=== PATIENT | female | born 1975 | race Caucasian/White ===

== ENCOUNTER 2017-06-21 18:50 | Emergency (ER) | payer MEDICAID, SELFPAY ==
[2017-06-21 18:50] VITALS: BP 149/98; PULSE 92; RESP 16; TEMP 37.1; O2SAT 100; BMI 31.4
--- NOTE | 2017-06-21 20:52 | ED.DCSUM_ITS ---
- ER Visit Summary Date of Service: 06/21/17 Chief Complaint: URI symptoms and left lower molar dental pain. History of Present Illness: The patient is a 42 F days. Denies any fever. Nonproductive cough. Mild earache mild sore throat. No vomiting no diarrhea. Also states her last left lower molar is been painful last several days also. He had dental work done at tooth before. She has had multiple teeth pulled in the past. Physical Examination: Well appearing female no acute distress. Vital signs are stable afebrile. She does not look septic or toxic. Pulse ox are percent on room air no signs of hypoxia. HEENT exam posterior pharynx mild erythema no exudate. No trouble swallowing or breathing. No stridor or drooling. TMs are minimally erythematous bilaterally. Nails are unremarkable. Left lower last molar as cavity and tender to palpation however there is no inflammation of the gum. Neck nontender no lymphadenopathy. Lungs clear to auscultation bilaterally. Heart regular rate and rhythm no murmur. Abdomen soft nontender. Moving all 4 extremities. Neurologic exam normal. Test Results: None Emergency Department Course and Treatment: Patient will be locally anesthetized with a dental block with Marcaine. Discharged home with Motrin for pain and a [place] home pack. She will not be written for a prescription for any narcotic. Follow-up with her dentist. Treatment Plan: [] Disposition: Discharge Impression: Viral URI Tobacco abuse Left lower molar dental pain secondary to dental cavity with a dental block performed by the ER. This note was generated with [employer] dictation software. It may contain incorrect words, spelling, and punctuation that were not noted in review of the chart prior to signing ED Disposition - Plan for ED Patient: Chief Complaint: General Illness Referrals: Kevin Conn MD [Primary Care Provider] -
--- NOTE | 2017-06-21 20:52 | ED.DEP ---
ED Disposition - Plan for ED Patient: Disposition: Home or Assisted Living Chief Complaint: General Illness Instructions: ED URI Viral, ED Tooth Pain Prescriptions: Penicillin Vk [Pen-Vee K 250MG] 250 mg PO 4X/DAY #40 tab Referrals: Kevin Conn MD [Primary Care Provider] - As Needed Shasta Garcia [NON-STAFF] - Additional Instructions: Follow-up with an oral surgeon as soon as possible. Limited [place] for pain. Otherwise ice to jaw and Motrin and Tylenol. Stop smoking !!
--- NOTE | 2017-06-21 20:59 | DCINST.ED_ITS ---
ED Disposition - Plan for ED Patient: Disposition: Home or Assisted Living Chief Complaint: General Illness Instructions: ED URI Viral, ED Tooth Pain Prescriptions: Penicillin Vk [Pen-Vee K 250MG] 250 mg PO 4X/DAY #40 tab Referrals: Kevin Conn MD [Primary Care Provider] - As Needed Shasta Garcia [NON-STAFF] - Additional Instructions: Follow-up with an oral surgeon as soon as possible. Limited [place] for pain. Otherwise ice to jaw and Motrin and Tylenol. Stop smoking !!
[2017-06-21 21:01] VITALS: RESP 18
[2017-06-21] MEDS: HYDROcodone Bitartrate/Apap 5/325 Tablet PO (21:01)
== END 2017-06-21 21:02 | disposition home or self-care (01) ==
PROVIDERS: Emergency Provider Emergency Medicine; Family Provider Family Medicine; PCP Family Medicine
DX: K02.9 Dental caries, unspecified (principal); J06.9 Acute upper respiratory infection, unspecified; K08.89 Other specified disorders of teeth and supporting structures; E11.9 Type 2 diabetes mellitus without complications; E78.00 Pure hypercholesterolemia, unspecified; F32.9 Major depressive disorder, single episode, unspecified; Z72.0 Tobacco use; Z79.84 Long term (current) use of oral hypoglycemic drugs; Z79.899 Other long term (current) drug therapy
CPT/HCPCS: 64402; 99283

== ENCOUNTER 2018-04-15 20:12 | Observation (INO) | payer MEDICAID, SELFPAY ==
[2018-04-15 20:13] VITALS: BP 130/86; PULSE 84; RESP 16; TEMP 36.2; O2SAT 99; BMI 33.2
--- NOTE | 2018-04-15 20:15 | ED.RN ---
NO OLD EKGS IN MUSE
--- NOTE | 2018-04-15 20:33 | EKG12_ITS ---
Test Reason : REPEAT Blood Pressure : / mmHG Vent. Rate : 081 BPM Atrial Rate : 081 BPM P-R Int : 140 ms QRS Dur : 090 ms QT Int : 396 ms P-R-T Axes : 030 012 095 degrees QTc Int : 460 ms Normal sinus rhythm Low voltage QRS Nonspecific ST and T wave abnormality Abnormal ECG Confirmed by NEMO CHASE, ADORE ([id number]), editor in chief newspaper ZO WONG ([id number]) on 04/17/2018 2:00:49 PM Referred By: LUISA Confirmed By:ADORE CHESTER MD
--- NOTE | 2018-04-15 20:33 | RAD_ITS ---
STUDY: X-RAY CHEST REASON FOR EXAM: Female, 42 years old. Chest pain TECHNIQUE: AP portable COMPARISON: None. FINDINGS: The lungs are clear and expanded. There is no demonstrated pleural abnormality. Normal size heart. Normal mediastinum and irvin. Normal visualized pulmonary arteries. Normal visualized aortic arch and descending thoracic aorta. Normal visualized thoracic spine. Normal visualized ribs, clavicles, and shoulders. There is no demonstrated abnormality of the visualized soft tissue structures of the upper abdomen. RAD/Chest 1 View (Portable) IMPRESSION: Normal x-ray examination of the chest. Electronically Signed: Jose David King MD at 22:01 EST , Service support ,
--- NOTE | 2018-04-15 20:35 | ED.DCSUM_ITS ---
- ER Visit Summary Date of Service: 04/15/18 Chief Complaint: Chest pain History of Present Illness: The patient is a 42 F presenting with chest pain. She states the pain has been intermittent for the last 2-3 days. She is getting the pain 2-3 times a day. She states it is worsened with exertion. She has associated shortness of breath, diaphoresis. She denies nausea or vomiting. She states the pain is midsternal radiates to her jaw and left arm. She has history of diabetes, hypercholesterolemia, family history of early heart disease and is a previous smoker. She denies PE/DVT risk factors. Physical Examination: Vitals are stable. Patient is afebrile. Alert no acute distress. HEENT exam is unremarkable. Neck is supple. Lungs are clear and equal bilaterally. Heart is regular rate and rhythm. Abdomen is soft nontender nondistended. Extremities are unremarkable. Skin is warm and dry. No focal neurologic deficit. Remainder of exam is unremarkable. Emergency Department Course and Treatment: EKG is sinus rhythm rate of 84, T wave inversion 1 and aVL with no old for comparison. Chest x-ray shows no acute process. CBC, chemistries unremarkable other than glucose 187. Troponin is negative. She was given aspirin on arrival. She remained pain-free in the emergency department. Discussed with the hospitalist for observation. Disposition: Observation Impression: Chest pain This note was generated with [employer] dictation software. It may contain incorrect words, spelling, and punctuation that were not noted in review of the chart prior to signing ED Disposition - Plan for ED Patient: Disposition: Acute Care Hospital [facility] Chief Complaint: Chest Pain
[2018-04-15] MEDS: Aspirin 81 MG TAB.CHEW 324 MG PO (20:57)
--- NOTE | 2018-04-15 20:57 | EKG12_ITS ---
Test Reason : CP Blood Pressure : / mmHG Vent. Rate : 084 BPM Atrial Rate : 084 BPM P-R Int : 142 ms QRS Dur : 088 ms QT Int : 390 ms P-R-T Axes : 032 015 093 degrees QTc Int : 460 ms Normal sinus rhythm Nonspecific ST and T wave abnormality Abnormal ECG Confirmed by NEMO CHASE, ADORE ([id number]), book editor ZO WONG ([id number]) on 04/17/2018 2:01:06 PM Referred By: JAZMIN Confirmed By:ADORE CHESTER MD
[2018-04-15 21:57] LABS: Absolute Lymphocyte Count 3.31 X10^3/ul (0.83-4.51); Absolute Neutrophil Count 5.7 X10^3/uL (2.0-7.7); Basophil# 0.04 X10^3/uL; Basophil% 0.4 % (0-1); Eosinophil# 0.15 X10^3/uL; Eosinophils% 1.5 % (0-5); Hematocrit 41.1 % (37-47); Hemoglobin 13.5 g/dl (12.0-15.0); Lymphocyte # 3.31 X10^3/ul (4.0); Lymphocyte % 33.1 % (19-41); Mean Corp Hgb Conc 32.8 g/gl (32-36); Mean Corpuscular Hgb 28.2 pg (27.0-32.0); Mean Platelet Vol. 9.7 fl (6.2-12.0); Monocyte# 0.77 X10^3/uL; Monocyte% 7.7 % (0-10); Neutrophil # 5.72 X10^3/uL (2.7-7.7); Neutrophil % 57.2 % (47-70); POSITIVE COUNT NO; POSITIVE DIFFERENTIAL NO; POSITIVE MORPHOLOGY NO; Platelet Count 390 K/mm3 (150-450); RBC Distribution Width CV 13.8 % (11.6-14.6); RBC Distribution Width SD 42.7 fl (35.1-43.9); Red Blood Count 4.78 M/mm3 (4.2-5.4)
[2018-04-15 22:15] LABS: Anion Gap 10 (5-15); BUN 15 mg/dL (7-18); BUN/Creat Ratio 14.9 RATIO (10-20); Chloride 103 mmol/L (98-107); Creatinine, Serum 1.01 mg/dL (0.55-1.02); EST Glomerular Filtration Rate 64 mL/min (>60); Est Glom Filt Rate - Afr Amer 77 mL/min (>60); Estimated Creatinine Clearance 76.61 ml/min; Glucose 187 mg/dL (74-106); Potassium 4.4 mmol/L (3.5-5.1); Sodium Level 139 mmol/L (136-145)
--- NOTE | 2018-04-15 23:09 | HP.PCM_ITS ---
Problem List (1) Chest pain Status: Acute History of Present Illness Date of Admission: 04/15/18 Chief Complaint: chest Pain The patient is a 42 year old F with a significant diabetes mellitus; depression; hyperlipidemia; former smoker who presented with 2-3 days history of intermittent substernal chest pain that radiated to her bilateral jaw and left arm. She described her chest pain at sharp and tingling. Her chest pain is of severity 6-7 on a scale of 1-10. Associated with her symptoms is a warm feeling on the face and neck. She denies any nausea or vomiting. Chest pain has been progressively worsening. She denies any ameliorating factors. Her chest pain worsens with normal activity. Past Medical History Allergies naproxen Adverse Reaction (Verified 04/15/18 20:16) Other Home Medications: Ambulatory Orders Medication Instructions Recorded Metformin HCl [Metformin HCl ER] 1,000 mg PO BID 02/26/17 Simvastatin [Zocor] 40 mg PO QHS 02/26/17 buPROPion XL [Wellbutrin Xl] 150 mg PO BID 02/26/17 Glimepiride 2 mg PO DAILY 04/15/18 Naproxen 500 mg PO PRN PRN 04/15/18 Sertraline HCl 50 mg PO DAILY 04/15/18 Surgical History: - - All his teeth has been pulled out. Smoking Status: Current every day smoker Review of Systems Constitutional: Denies: Chills, Fever, Weight Change HEENT: Denies: Head Aches, Sinus Congestion, Sinus Drainage Cardiovascular: Reports: Chest Pain. Denies: Palpitations Respiratory: Reports: Shortness of Breath. Denies: Cough Gastrointestinal: Denies: Abdominal Pain, Nausea, Vomiting Genitourinary: Denies: Dysuria Musculoskeletal: Reports: Arm Pain - Left arm. Denies: Joint Pain, Joint Tenderness Skin: Denies: Rash, Wounds Neurological: Denies: Numbness, Tingling, Focal weakness Psychiatric: Denies: Anxiety, Depression, Homicidal Ideations, Suicidal Ideations Hematologic/ Lymphatic: Denies: Easy Bruising, Easy Bleeding VTE Information - Inpt Only VTE Present on Admission: No VTE Mechan Device Prophylaxis: None VTE Pharm Prophylaxis ordered?: Yes Patient Problems: Active and Suspected Problems Chest pain (Acute) - Physical Exam General: Alert, Oriented x3, Cooperative HEENT: Atraumatic, PERRLA, EOMI, Normocephalic Neck: Supple, No JVD, Negative Carotid Bruits Lungs: Clear to auscultation, Normal air movement Cardiovascular: Regular rate, No murmurs Abdomen: Bowel Sounds Present, Soft, Non Tender Extremities: No edema, Capillary Refill Less than 3 Seconds Skin: No rashes, No breakdown Musculoskeletal: No Tenderness to Palpation of Joints or Extremities Neurological: Cranial nerves II-XII grossly intact Psych/Mental Status: Normal Affect, Appropriate Vital Signs Temp Pulse Resp BP Pulse Ox 97.2 F L 84 16 130/86 H 99 04/15/18 20:13 04/15/18 20:13 04/15/18 20:13 04/15/18 20:13 04/15/18 20:13 Oxygen Delivery Method Room Air Weight: 102.058 kg Body Mass Index (BMI) 33.2 Laboratory Tests Past 24 Hrs 04/15/18 04/15/18 21:45 21:45 WBC 10.0 RBC 4.78 Hgb 13.5 Hct 41.1 MCV 86.0 MCH 28.2 MCHC 32.8 RDW 13.8 RDW Differential 42.7 Plt Count 390 MPV 9.7 Immature Gran % (Auto) 0.100 Neut % (Auto) 57.2 Lymph % (Auto) 33.1 [place] % (Auto) 7.7 Eos % (Auto) 1.5 Baso % (Auto) 0.4 Absolute Neuts (auto) 5.7 Absolute Lymphs (auto) 3.31 Total Counted Not Reportable Sodium 139 Potassium 4.4 Chloride 103 Carbon Dioxide 26.0 Anion Gap 10 BUN 15 Creatinine 1.01 Estim Creat Clear Calc 76.61 Est GFR (MDRD) Af Amer 77 Est GFR (MDRD) Non-Af 64 BUN/Creatinine Ratio 14.9 Glucose 187 H Calcium 9.0 Troponin I < 0.015 Assessment/Plan All Active Problems Chest pain (Acute) The patient is a 42 year old F with a significant diabetes mellitus; depression; hyperlipidemia; former smoker who presented with 2-3 days history of intermittent substernal chest pain that radiated to her bilateral jaw and left arm. Chest pain Admit to a monitored bed on PCU CXR independently reviewed confirms acute cardia primary process. EKG independently reviewed confirms sinus rhythm with T wave inversion in leads I and aVL with no old EKG to compare with. Patient received aspirin 324 mg at emergency department. ASA 81 mg p.o. daily SL NTG 0.4 mg prn as needed for chest pain Morphine as needed for pain Serial cardiac enzymes High intensity statin ordered. Lipid levels ordered. Stat EKG as needed for chest pain Treadmill stress test in the AM if the cardiac enzymes are negative Depression Wellbutrin continued. Diabetes mellitus On presentation her blood glucose was not within goal. Hold home metformin since she is going for stress test return to the outcome of the stress test. Amaryl continued We will put patient on correction scale insulin. Hypoglycemic protocol ordered. DVT prophylaxis Subcutaneous heparin ordered. Ordered. Code Visit OBSV E&M: 48692 Initial observation care L3
[2018-04-15 23:30] VITALS: BP 125/78; PULSE 83; RESP 22; O2SAT 98
[2018-04-16] VITALS (34 sets, daily range): BP systolic 90–170; BP diastolic 61–96; PULSE 66–95; RESP 12–18; TEMP 36.5–36.8; O2SAT 95–100; BMI 34.0
[2018-04-16 00:51] LABS: Bedside Glucose 166 mg/dL (70-110)
[2018-04-16 03:50] LABS: Cholesterol 185 mg/dL (200); High Density Lipoprotein 41 mg/dL; Triglycerides 283 mg/dL; Very Low Density Lipoprotein 57 mg/dL (5-40)
[2018-04-16 04:11] LABS: Anion Gap 12 (5-15); BUN 17 mg/dL (7-18); BUN/Creat Ratio 18.5 RATIO (10-20); Calcium,Total 8.7 mg/dL (8.5-10.1); Chloride 107 mmol/L (98-107); Creatinine, Serum 0.92 mg/dL (0.55-1.02); EST Glomerular Filtration Rate 71 mL/min (>60); Est Glom Filt Rate - Afr Amer 86 mL/min (>60); Glucose 134 mg/dL (74-106); Potassium 3.9 mmol/L (3.5-5.1); Sodium Level 141 mmol/L (136-145)
[2018-04-16 04:27] LABS: Hemoglobin 12.5 g/dl (12.0-15.0); Mean Corp Hgb Conc 32.9 g/gl (32-36); Mean Corpuscular Hgb 28.3 pg (27.0-32.0); Mean Corpuscular Volume 86.2 fL (81-99); Mean Platelet Vol. 10.3 fl (6.2-12.0); Platelet Count 375 K/mm3 (150-450); Red Blood Count 4.41 M/mm3 (4.2-5.4); Scan Indicated on CBC? Y/N NO; White Blood Count 10.2 K/mm3 (4.4-11.0)
--- NOTE | 2018-04-16 05:00 | EKG12_ITS ---
Test Reason : AM EKG Blood Pressure : / mmHG Vent. Rate : 080 BPM Atrial Rate : 080 BPM P-R Int : 136 ms QRS Dur : 094 ms QT Int : 404 ms P-R-T Axes : 043 044 102 degrees QTc Int : 465 ms Normal sinus rhythm T wave abnormality: consider myocardial ischemia-lateral Confirmed by NEMO CHASE, ADORE ([id number]), photo editor ZO WONG ([id number]) on 04/18/2018 2:43:56 PM Referred By: SHANNAN Confirmed By:ADORE CHESTER MD
[2018-04-16] MEDS: Aspirin E.C. 81 MG Tablet PO (05:56)
[2018-04-16] MEDS: 0.9% NaCl Peripheral Flush Adult/Peds IV (05:57)
[2018-04-16 06:05] LABS: Bedside Glucose 128 mg/dL (70-110)
[2018-04-16 08:48] LABS: Prothrombin Time (Protime)PT. 13.4 SECONDS (11.7-14.9)
[2018-04-16 08:55] LABS: Partial Thromboplast Time 27.3 Seconds (24.1-36.2)
--- NOTE | 2018-04-16 09:57 | STRESSREP ---
Stress Test Report Date: 04/16/2018 Procedure: Exercise tolerance test/imaging study Indications: Chest pain Consent: Per the patient Procedure: The patient exercised on a Serge protocol for 6 minutes completing Stage II achieving a peak heart rate of 153 bpm (85 % predicted maximal heart rate) with a peak blood pressure 194/82 mmHg and a peak MET capacity of 7 METs. The baseline ECG demonstrated normal sinus rhythm. The peak exercise ECG demonstrated approximately 0.5-1.0 mm of horizontal/upsloping ST segment depression in leads II, III, aVF and in recovery and ECG demonstrating approximately [address] segment depression in leads II, III, aVF, and approximately 0.5-1.[address] segment depression in leads V5 through V6 with gradual resolution towards baseline in recovery. There were no cardiac dysrhythmias pretest, during exercise, or recovery. The functional capacity was considered average. There was chest discomfort and jaw discomfort at peak exercise with spontaneous resolution towards baseline in recovery. The examination was discontinued secondary to chest discomfort. Impression: 1. Technically adequate (percent predicted maximal heart rate greater than 85%) exercise tolerance test 2. Peak exercise ECG M and straight at approximately 0.5-1.0 mm of horizontal/upsloping ST segment depression in leads II, III, aVF, and in recovery and ECG demonstrating approximately [address] segment depression in leads II, III, aVF, and approximately 0.5-1.[address] segment depression in leads V5 through V6 with gradual resolution towards baseline in recovery 3. There were no cardiac dysrhythmias pretest, during exercise, or recovery 4. Nuclear images pending Myocardial perfusion imaging study: Technique: The patient was injected with 14.5 mCi of technetium 99m Cardiolite and subsequently rest SPECT Cardiolite nuclear imaging was obtained in the horizontal long, vertical long, and short axis views. The patient exercised on a Serge protocol for 6 minutes completing Stage 2 achieving a peak heart rate of 153 bpm (85 % predicted maximal heart rate) with a peak blood pressure 194/82 mmHg and a peak MET capacity of 7 METs. The patient was injected with 44.8 mCi of technetium 99m Cardiolite and subsequently stress SPECT Cardiolite nuclear imaging was obtained in the horizontal long, vertical long, and short axis views. A gated Cardiolite study at peak stress was obtained. Interpretation: Rest and stress SPECT Cardiolite nuclear imaging status post realignment, normalization, and attenuation correction, demonstrates at rest the appearance of relative uniform tracer uptake. Status post stress there is notation of diminished tracer uptake in portions of the mid to distal anterolateral, mid to distal anteroseptal, anterior apical, and septal apical segments. There is diminished end-systolic thickening and brightening in the aforementioned areas. The gated Cardiolite study demonstrates diminished myocardial thickening and end were wall motion in the aforementioned areas. The reported LVEF is 54 %. Impression: 1. Rest and stress SPECT Cardiolite nuclear imaging demonstrate this post stress myocardial perfusion changes appearing compatible with an area of stress-induced myocardial ischemia in portions of the mid to distal anterolateral, anteroseptal, anterior apical, and septal apical segments. 2. The gated Cardiolite study reports an LVEF of 54 %. This note was generated with [employer] software. It may contain incorrect words, spelling, and punctuation that were not noted in checking the note before signing.
--- NOTE | 2018-04-16 10:04 | STRESSREP_ITS ---
Stress Test Report Date: 04/16/2018 Procedure: Exercise tolerance test/imaging study Indications: Chest pain Consent: Per the patient Procedure: The patient exercised on a Serge protocol for 6 minutes completing Stage II achieving a peak heart rate of 153 bpm (85 % predicted maximal heart rate) with a peak blood pressure 194/82 mmHg and a peak MET capacity of 7 METs. The baseline ECG demonstrated normal sinus rhythm. The peak exercise ECG demonstrated approximately 0.5-1.0 mm of horizontal/upsloping ST segment depression in leads II, III, aVF and in recovery and ECG demonstrating approximately [address] segment depression in leads II, III, aVF, and approximately 0.5-1.[address] segment depression in leads V5 through V6 with gradual resolution towards baseline in recovery. There were no cardiac dysrhythmias pretest, during exercise, or recovery. The functional capacity was considered average. There was chest discomfort and jaw discomfort at peak exercise with spontaneous resolution towards baseline in recovery. The examination was discontinued secondary to chest discomfort. Impression: 1. Technically adequate (percent predicted maximal heart rate greater than 85%) exercise tolerance test 2. Peak exercise ECG M and straight at approximately 0.5-1.0 mm of horizontal/upsloping ST segment depression in leads II, III, aVF, and in recovery and ECG demonstrating approximately [address] segment depression in leads II, III, aVF, and approximately 0.5-1.[address] segment depression in leads V5 through V6 with gradual resolution towards baseline in recovery 3. There were no cardiac dysrhythmias pretest, during exercise, or recovery 4. Nuclear images pending Myocardial perfusion imaging study: Technique: The patient was injected with 14.5 mCi of technetium 99m Cardiolite and subsequently rest SPECT Cardiolite nuclear imaging was obtained in the horizontal long, vertical long, and short axis views. The patient exercised on a Serge protocol for 6 minutes completing Stage 2 achieving a peak heart rate of 153 bpm (85 % predicted maximal heart rate) with a peak blood pressure 194/82 mmHg and a peak MET capacity of 7 METs. The patient was injected with 44.8 mCi of technetium 99m Cardiolite and subsequently stress SPECT Cardiolite nuclear imaging was obtained in the horizontal long, vertical long, and short axis views. A gated Cardiolite study at peak stress was obtained. Interpretation: Rest and stress SPECT Cardiolite nuclear imaging status post realignment, nor malization, and attenuation correction, demonstrates at rest the appearance of relative uniform tracer uptake. Status post stress there is notation of diminished tracer uptake in portions of the mid to distal anterolateral, mid to distal anteroseptal, anterior apical, and septal apical segments. There is diminished end-systolic thickening and brightening in the aforementioned areas. The gated Cardiolite study demonstrates diminished myocardial thickening and end were wall motion in the aforementioned areas. The reported LVEF is 54 %. Impression: 1. Rest and stress SPECT Cardiolite nuclear imaging demonstrate this post stress myocardial perfusion changes appearing compatible with an area of stress- induced myocardial ischemia in portions of the mid to distal anterolateral, anteroseptal, anterior apical, and septal apical segments. 2. The gated Cardiolite study reports an LVEF of 54 %. This note was generated with [employer] software. It may contain incorrect words, spelling, and punctuation that were not noted in checking the note before signing.
--- NOTE | 2018-04-16 10:55 | CASEMGMT ---
According to the [facility] website, the following are in-network tertiary facilities: [facility], [place], [facility], [facility], [facility], [facility], [employer], and . [facility]
--- NOTE | 2018-04-16 11:10 | PN_ITS ---
Addendum entered and electronically signed by QUINCY Ansari 04/16/18 14:07: Code Visit S: Pt was seen and exmained post stress test prior to heart cath. She had no further complaints of chest pain. She also had no shortness of breath, pressure, heaviness, palpitations, racing, lightheadedness or dizziness, no nausea or vomiting. Prior, She had chest pain over the left midsternal region radiating into her left shoulder and neck. Explain the abnormal findings of her stress test she was agreeable to heart catheterization. O: VSS, heart cath reviewed-abnormal, CBC and BMP are unremarkable, INR is normal. General: Resting comfortably NAD Psych: A/Ox3 normal affect HEENT: PEARRLA AT NC Neck: Supple NT CV: RRR no m/t/r/g/h Resp: CTA Abd: [id number] Soft NT no guarding or rigidity Ext: DP2+= no edema Skin: W/D normal turgor Lymph/Heme: No active bleeding or adenopathy Neuro: CN2-12 intact A/P: 1. Chest pain with abnormal stress test-discussed with Dr. Goins patient was taken for heart catheterization. Continue aspirin, statin, metoprolol, Brilinta. 2. Depression-continue Wellbutrin 3. Type 2 diabetes mellitus-continue Amaryl, metformin held, A1c was 8.2 demonstrating poor control. She will likely need an additional agent at discharge, and will need to resume metformin after 3 days as she received dye. DVT prophylaxis: SCDs This patient was seen by Francis Thurman PA-C under the supervision of Doctor Gadiel. Original Note: Patient Problems: Active and Suspected Problems Chest pain (Acute) Subjective: Patient was seen independently and in conjunction with Francis MATHEW. Pt is a 42 YO female who presented to the emergency department at [facility] on 04/14/2018 complaining of left chest pain with radiation to both sides of her neck and down her left arm. It was associated with diaphoresis and shortness of breath. She has been having this pain for the past couple weeks. It generally last up to 5 minutes. She states it comes on at rest and with exertion. Past medical history is positive for diabetes mellitus type 2, hyperlipidemia, depression and tobacco dependence. She tells me she just quit smoking this past July and prior to that smoked for 20 years. There is a strong family history of coronary artery disease and her mother had an NH at 35 while giving to this patient. Troponin was less than 0.015 x 3. Nuclear stress test today was abnormal and the patient will be going for cardiac catheterization. PHYSICAL EXAM: GENERAL: alert, oriented X 3, Cooperative, NAD ORAL: moist mucosa, no mucosal lesions NECK: No JVD, supple, trachea midline, carotids have brisk upstroke and good pulse volume, no carotid bruits LUNGS: CTA, symmetric chest expansion, good air exchange throughout HEART: RRR, Normal S1 and S2, no rub, no gallop, no murmur ABDOMEN: soft, NT, ND, BS present, no guarding with palpation EXTREMITIES: no edema, no cyanosis, no calf tenderness, peripheral pulses are normal SKIN: No rashes, no breakdown NEUROLOGIC: no focal neurologic deficits PSYCH: appropriate, normal affect, pleasant - Physical Exam Vital Signs Temp Pulse Resp BP Pulse Ox 98.3 F 79 16 113/73 95 04/16/18 09:05 04/16/18 09:05 04/16/18 09:05 04/16/18 09:05 04/16/18 09:05 Oxygen Delivery Method Room Air Weight: 230 lb 2.601 oz Body Mass Index (BMI) 34.0 Intake and Output for Last 24 Hours 04/14/18 04/15/18 04/16/18 23:59 23:59 23:59 Intake Total Balance Laboratory Tests Past 24 Hrs 04/15/18 04/15/18 04/16/18 21:45 21:45 01:00 WBC 10.0 RBC 4.78 Hgb 13.5 Hct 41.1 MCV 86.0 MCH 28.2 MCHC 32.8 RDW 13.8 RDW Differential 42.7 Plt Count 390 MPV 9.7 Immature Gran % (Auto) 0.100 Neut % (Auto) 57.2 Lymph % (Auto) 33.1 Slope % (Auto) 7.7 Eos % (Auto) 1.5 Baso % (Auto) 0.4 Absolute Neuts (auto) 5.7 Absolute Lymphs (auto) 3.31 Total Counted Not Reportable PT INR APTT Sodium 139 Potassium 4.4 Chloride 103 Carbon Dioxide 26.0 Anion Gap 10 BUN 15 Creatinine 1.01 Estim Creat Clear Calc 76.61 Est GFR (MDRD) Af Amer 77 Est GFR (MDRD) Non-Af 64 BUN/Creatinine Ratio 14.9 Glucose 187 H Calcium 9.0 Troponin I < 0.015 < 0.015 Triglycerides Cholesterol LDL Cholesterol VLDL Cholesterol HDL Cholesterol 04/16/18 04/16/18 04/16/18 03:28 03:28 03:28 WBC 10.2 RBC 4.41 Hgb 12.5 Hct 38.0 MCV 86.2 MCH 28.3 MCHC 32.9 RDW 14.0 RDW Differential 43.0 Plt Count 375 MPV 10.3 Immature Gran % (Auto) Neut % (Auto) Lymph % (Auto) Slope % (Auto) Eos % (Auto) Baso % (Auto) Absolute Neuts (auto) Absolute Lymphs (auto) Total Counted PT INR APTT Sodium 141 Potassium 3.9 Chloride 107 Carbon Dioxide 22.0 Anion Gap 12 BUN 17 Creatinine 0.92 Estim Creat Clear Calc 84.10 Est GFR (MDRD) Af Amer 86 Est GFR (MDRD) Non-Af 71 BUN/Creatinine Ratio 18.5 Glucose 134 H Calcium 8.7 Troponin I < 0.015 Triglycerides 283 H Cholesterol 185 LDL Cholesterol 87 VLDL Cholesterol 57 H HDL Cholesterol 41 04/16/18 08:22 WBC RBC Hgb Hct MCV MCH MCHC RDW RDW Differential Plt Count MPV Immature Gran % (Auto) Neut % (Auto) Lymph % (Auto) Slope % (Auto) Eos % (Auto) Baso % (Auto) Absolute Neuts (auto) Absolute Lymphs (auto) Total Counted PT 13.4 INR 1.0 APTT 27.3 Sodium Potassium Chloride Carbon Dioxide Anion Gap BUN Creatinine Estim Creat Clear Calc Est GFR (MDRD) Af Amer Est GFR (MDRD) Non-Af BUN/Creatinine Ratio Glucose Calcium Troponin I Triglycerides Cholesterol LDL Cholesterol VLDL Cholesterol HDL Cholesterol POC Glucose 04/16/18 04/16/18 05:51 00:44 POC Glucose 128 H 166 H Medical Necessity - Tobacco Use Smoking Status: Current every day smoker Tobacco Use: Cigarettes Assessment/Plan All Active Problems Chest pain (Acute) Impressions 1. Chest pain with abnormal stress test and strong family history of coronary artery disease in a patient with diabetes mellitus, hyperlipidemia and former smoking history-seen in consultation by Dr. Goins and will be taken for cardiac catheterization today 2. Diabetes mellitus type 2 3. Hyperlipidemia-LDL is 87 today will need to intensify her statin therapy. Started on atorvastatin 80 mg nightly at admission, she was on simvastatin 40 mg nightly. 4. Depression 5. Former smoker-quit in July 2017 Continue aspirin, atorvastatin Given Brilinta by Dr. Goins Will follow up with her following cardiac catheterization Josephine with Dr. Goins. Code Visit Inpatient E&M: 61405 Subs Hosp L3
--- NOTE | 2018-04-16 11:16 | CON.PCM_ITS ---
Problem List (1) Chest pain Status: Acute (2) Angina pectoris Status: Acute (3) Abnormal cardiovascular stress test Status: Acute (4) HLD (hyperlipidemia) Status: Chronic (5) Diabetes mellitus Status: Chronic Reason for Consult Date of Consultation: 04/16/18 History of Present Illness: The patient is a 42 year old white female with a past medical history of hyperlipidemia and diabetes mellitus who is referred for evaluation of chest pain concerning for angina pectoris-unstable as well as an abnormal stress nuclear imaging study and she states for the past month she has been having chest discomfort which radiates to her jaw and her left upper extremity. This is been occurring initially with exertion but recently at rest/at night. She notes it awoke her from sleep. She did not have associated nausea, emesis, diaphoresis, or dyspnea. She presented to the hospital for further evaluation. She is undergone evaluation with cardiac enzymes which have been negative. She had an ECG performed which demonstrated sinus rhythm with borderline low voltage QRS with nonspecific ST and T wave changes. This was repeated x2 with continued nonspecific ST and T wave changes. She also underwent an stress nuclear imaging study. She developed symptoms, ECG changes, and had myocardial perfusion imaging changes in the anterolateral, anteroseptal, anteroapical, and septal apical distributions with associated wall motion abnormalities. Thus she has been referred for further evaluation with diagnostic cardiac catheterization. To the best of her knowledge she has no history of previous cardiovascular disease. She does not believe she is ever undergone evaluation with any form of cardiovascular testing. She states that she quit smoking approximately 9 months ago. She does note that her mother had an NV at age 35 while giving to her. She notes her mother subsequently had CABG in her 60s. [] Past Medical History Allergies/Adverse Reactions: Allergies naproxen Adverse Reaction (Verified 04/15/18 20:16) Other Home Medications: Ambulatory Orders Medication Instructions Recorded Metformin HCl [Metformin HCl ER] 1,000 mg PO BID 02/26/17 Simvastatin [Zocor] 40 mg PO QHS 02/26/17 buPROPion XL [Wellbutrin Xl] 150 mg PO BID 02/26/17 Glimepiride 2 mg PO DAILY 04/15/18 Naproxen 500 mg PO PRN PRN 04/15/18 Sertraline HCl 50 mg PO DAILY 04/15/18 Past Medical History (Chronic Problems): Chronic Problems HLD (hyperlipidemia) (Chronic) Diabetes mellitus (Chronic) Surgical History: - - All his teeth has been pulled out. Smoking Status: Current every day smoker Tobacco Use: Cigarettes Alcohol: None Drugs: None Review of Systems - Review of Systems General: Denies: Fever, Night Sweats, Fatigue Cardiovascular: Reports: Chest Discomfort, Chest Discomfort at Rest, Chest Discomfort with Exertion. Denies: Shortness of Breath, Orthopnea, PND, Peripheral Edema, Palpitations, Lightheadedness, Dizziness, Near Syncope, Syn cope Respiratory: Reports: Cough, Shortness of Breath Gastrointestinal: Denies: Hematemesis, Hematochezia, Melena Genitourinary: Denies: Dysuria, Hematuria Skin: Denies: Rash Subjectve: This is a 42-year-old white female who appears to be resting comfortably at the moment in no acute distress. Objective: Vital Signs Temp Pulse Resp BP Pulse Ox 98.3 F 79 16 113/73 95 04/16/18 09:05 04/16/18 09:05 04/16/18 09:05 04/16/18 09:05 04/16/18 09:05 Oxygen Delivery Method Room Air Weight: 230 lb 2.601 oz Body Mass Index (BMI) 34.0 Intake and Output for Last 24 Hours 04/14/18 04/15/18 04/16/18 23:59 23:59 23:59 Intake Total Balance General: Awake, Alert, Oriented x 3, Cooperative, No Acute Distress HEENT: Atraumatic, Normocephalic, PERRL, EOMI, Sclera Non Icteric Oral: Moist Mucosa Neck: Supple, Good ROM, No JVD Lungs: Clear to auscultation Cardiovascular: Regular Rhythm, Normal S1, Normal S2 Vascular: No Carotid Bruits Abdomen: Bowel Sounds Present, Soft, Non Tender Extremities: No Cyanosis, No Clubbing, No edema Lymphatic: No Lymph Node Enlargement Neurological: No Focal Motor or Sensory Deficit 04/15/18 21:45: WBC 10.0, RBC 4.78, Hgb 13.5, Hct 41.1, MCV 86.0, MCH 28.2, MCHC 32.8, RDW 13.8, RDW Differential 42.7, Plt Count 390, MPV 9.7, Immature Gran % (Auto) 0.100, Neut % (Auto) 57.2, Lymph % (Auto) 33.1, [place] % (Auto) 7.7, Eos % (Auto) 1.5, Baso % (Auto) 0.4, Absolute Neuts (auto) 5.7, Total Counted Not Reportable 04/15/18 21:45: Sodium 139, Potassium 4.4, Chloride 103, Carbon Dioxide 26.0, Anion Gap 10, BUN 15, Creatinine 1.01, Est GFR (MDRD) Af Amer 77, Est GFR (MDRD) Non-Af 64, BUN/Creatinine Ratio 14.9, Glucose 187 H, Calcium 9.0, Troponin I < 0.015 04/16/18 01:00: Troponin I < 0.015 04/16/18 03:28: Troponin I < 0.015, Triglycerides 283 H, Cholesterol 185, LDL Cholesterol 87, VLDL Cholesterol 57 H, HDL Cholesterol 41 04/16/18 03:28: Sodium 141, Potassium 3.9, Chloride 107, Carbon Dioxide 22.0, Anion Gap 12, BUN 17, Creatinine 0.92, Est GFR (MDRD) Af Amer 86, Est GFR (MDRD) Non-Af 71, BUN/Creatinine Ratio 18.5, Glucose 134 H, Calcium 8.7 04/16/18 03:28: WBC 10.2, RBC 4.41, Hgb 12.5, Hct 38.0, MCV 86.2, MCH 28.3, MCHC 32.9, RDW 14.0, RDW Differential 43.0, Plt Count 375, MPV 10.3 04/16/18 08:22: PT 13.4, INR 1.0, APTT 27.3 Rhythm: Sinus rhythm EKG: As noted above Stress Test: As noted above CXR: Preliminary evaluation: No acute cardiopulmonary disease process Assessment/Plan 1. Angina pectoris The patient presents with symptoms concerning for angina pectoris-unstable. She is undergone to rule out NV protocol which is negative by cardiac enzymes. However, she does have baseline ECG changes and subsequently has an abnormal stress nuclear imaging study based on symptoms, ECG, and myocardial perfusion imaging's. At the present time she will continue medical management. This will include aspirin and antiplatelet therapy. She can have additional agent such as nitrates, beta-blockers, etc. added. She is on lipid-lowering agents. She has been recommended for further evaluation with diagnostic cardiac catheterization. The procedure and risks were discussed with her. She was agreeable to this approach. 2. Abnormal stress nuclear imaging study She does have an abnormal stress nuclear imaging study as noted above. Thus she will undergo further evaluation care as described above. 3. Hyperlipidemia She will continue lipid-lowering therapy. 4. It is mellitus She will continue evaluation care per internal medicine. Comment: The patient's case was discussed and reviewed with the patient and the [facility] staff. This note was generated using a voice recognition system and there may be incorrect words, spelling or punctuation that were not noted when reviewing the office note prior to saving.
[2018-04-16] MEDS: TICAGRELOR 90 MG TABLET 180 MG PO (11:29)
[2018-04-16 11:40] LABS: Bedside Glucose 134 mg/dL (70-110)
[2018-04-16 11:51] LABS: Hemoglobin A1c 8.2 % (4.2-6.3)
[2018-04-16 12:11] LABS: Pregnancy, Serum, hCG Quali. NEGATIVE Negative (0-9 Nonpreg)
--- NOTE | 2018-04-16 13:45 | EKG12_ITS ---
Test Reason : POST STENT Blood Pressure : / mmHG Vent. Rate : 076 BPM Atrial Rate : 076 BPM P-R Int : 136 ms QRS Dur : 098 ms QT Int : 412 ms P-R-T Axes : 038 061 099 degrees QTc Int : 463 ms Normal sinus rhythm T wave abnormality, consider lateral ischemia Abnormal ECG Confirmed by NEMO CHASE, ADORE ([id number]), editorial project manager ZO WONG ([id number] on 04/18/2018 2:51:10 PM Referred By: ADORE CHESTER Confirmed By:ADORE CHESTER MD
--- NOTE | 2018-04-16 13:50 | CL.I_ITS ---
Patient Name: EDUARDO HAGER Study Date: 04/16/2018 Performing: Eze Escalante MD Ht: 68.9 inches 175 cm : 1975 Wt: 229.28 lbs 104 kg Age: 42 Gender: female BSA: 2.19 PROCEDURE(S) PERFORMED [id number] W OR WO PTCA, SINGLE CORONARY ARTERY CLINICAL PROFILE AND CO-MORBIDITIES Indications: Suspected CAD Heart Failure: None Stress/Imaging Stress Test w/SPECT MPI: Yes Result: Positive Stress Test with SPECT MPI: Positive Angina Classification Anginal Classification w/in 2 Weeks: CCS IV CAD Presentations: Unstable angina. CONCLUSIONS Successful JIMENEZ successful JIMENEZ of the ostial LAD using a 3.5 x 18mm Resolute RECOMMENDATIONS Highly recommend quitting all tobacco products Follow up with primary contact printer dry film Risk factor modification ASA Indefinitley Plavix for at least 12 months Routine post interventional care Refer for Outpatient Cardiac Rehab Manual sheath removal per protocol DESCRIPTION OF PROCEDURE The patient arrived to the procedure lab. The risks and benefits of the procedure as well as a full d escription of our services here and current unavailability of surgical backup were fully explained to the patient and/or their significant other prior to the catheterization. The Timeout was completed, verifying the correct patient and procedure. The patient's procedural site was prepped and draped in the usual fashion. Local anesthetic was given subcutaneously to right radial region with Lidocaine 2% Using a modified Seldinger technique,arterial access was obtained via the right radial artery, a 6Fr sheath was inserted. Left Coronary Artery selective angiography was performed in multiple views usin g a 5 Fr. JL4 catheter. Right Coronary Artery selective angiography was then performed in multiple vi ews using a 5 Fr. 3DRC (Anand) catheter. Left Ventriculography was performed in SANTIAGO projection usi ng a 5 Fr. Pigtail catheter. LV to AO pullback pressures were then recorded.The images were reviewed and options discussed. A decision was then made to proceed with an Intervention, IVUS o r other adjunct procedure. EBU 3.5 Guide catheter was inserted and engaged into the LCA. JL 3.5 Guide catheter was inserted and engaged into the LCA. BMW Guide wire was advanced to the Circumflex. BMW Guide wire was advanced to the LAD. 3.5X15 EMERGE Balloon catheter was inserted. Balloon catheter was advanced across lesion in the LAD, proximal. PTCA balloon inflated at 4 atms for 12 secs. 3.5X18 RESOLUTE Drug Eluting stent was inserted. Drug Eluting stent was advanced across the lesion in the LAD, proximal. Angiogram perf ormed post stent deployment. The arterial sheath was pulled and a TR Band was applied for hemostasi s-18cc air INTERVENTION INFORMATION LESION SITE: LAD (Ostial) Lesion Complexity: Non-High/Non-C, chronic total occlusion: No, lesion at bifurcation: No, thrombus p resent: No, lesion length: 15 mm, culprit lesion: Yes, In-stent restenosis: No Pre Stenosis: 85 % Pre intervention [place] flow: 3 PROCEDURE: Drug Eluting Stent, JIMEENZ to ostial LAD Post Stenosis: 0 % Post intervention [place] flow: 3 Lesion Devices: Medtronic 6 Fr EBU3.5 100cm Guide Catheter Rogers .014 BMW Roann Straight 190cm Medtronic 6 Fr JL3.5 100cm Guide Catheter Harshal Sci EMERGE MR 3.50x15 BALLOON Medtronic Resolute RX JIMENEZ 3.5x18 COMPLICATIONS No Complications PROCEDURE MEDICATIONS Fentanyl 50 mcg IV Versed 1 mg IV Versed 1 mg IV Fentanyl 50 mcg IV Fentanyl 25 mcg IV Versed 2 mg IV Oxygen: 2 L/min via nasal cannula Angiomax Bolus 15.8 ml's 04/16/2018 13:17:26 Angiomax 5mg / ml @ 36.8 ml/hr IV started @ 04/16/2018 13:19:19 Heparin diluted in 23cc Heparinized saline. Patient given 10cc IA of this solution. 04/16/2018 12:27:4 9 Heparin diluted in 23cc Heparinized saline. Patient given 10cc IA of this solution. 04/16/2018 12:27:4 9 Nitro 200 mcg IC 04/16/2018 13:27:18 Verapamil 2.5mg, Ntg 100mcgs, 2000 units of Heparin diluted in 23cc Heparinized saline. Patient give n 10cc IA of this solution. 04/16/2018 12:27:49 Verapamil 2.5mg, Ntg 100mcgs, 2000 units of Heparin diluted in 23cc Heparinized saline. Patient give n 10cc IA of this solution. 04/16/2018 12:27:49 SUMMARY OF HEMODYNAMIC DATA Time AIR REST ECG 11:46:48 AO 110/72 (90) SA 12:44:26 LV 129/2, 30 12:58:16 LV 132/2, 25 12:58:24 LV 131/4, 30 12:59:12 LVp 126/11, 26 12:59:22 AOp 125/76 (98) 12:59:27 Signed By Eze Escalante MD On 04/16/2018 13:49:19 Eze Escalante MD
--- NOTE | 2018-04-16 14:10 | CRPHASE1 ---
Patient Data/Charges Lathe Setup Operator:: Eze Escalante Refer Phase II:: Yes Phase II Referral:: [facility] Risk Factors/Lifestyle Smoking Status: Current every day smoker Hx Diabetes Mellitus Type 2: Yes Hx Dyslipidemia: Yes Hx Obesity: Yes Height: 1.75 m Weight:: 104.326 kg BMI: 34.0 Laboratory Values: Cardiac Rehab Phase I Labs Hemoglobin A1c 8.2 % (4.2-6.3) H 04/16/18 08:22 Triglycerides 283 mg/dL (-199) H 04/16/18 03:28 Cholesterol 185 mg/dL (200) 04/16/18 03:28 LDL Cholesterol 87 mg/dL (0-130) 04/16/18 03:28 HDL Cholesterol 41 mg/dL (40-) 04/16/18 03:28 Knowledge of Condition:: Yes Hospital Course Cardiac Cath Date:: 04/16/18 Medical/Surgical History Angina:: Yes Diabetes Type II:: Yes Dyslipidemia:: Yes PTCA:: Yes
--- NOTE | 2018-04-16 14:15 | CRPHASE1_ITS ---
Patient Data/Charges Manager Lab:: Eze Escalante Refer Phase II:: Yes Phase II Referral:: [facility] Risk Factors/Lifestyle Smoking Status: Current every day smoker Hx Diabetes Mellitus Type 2: Yes Hx Dyslipidemia: Yes Hx Obesity: Yes Height: 1.75 m Weight:: 104.326 kg BMI: 34.0 Laboratory Values: Cardiac Rehab Phase I Labs Hemoglobin A1c 8.2 % (4.2-6.3) H 04/16/18 08:22 Triglycerides 283 mg/dL (-199) H 04/16/18 03:28 Cholesterol 185 mg/dL (200) 04/16/18 03:28 LDL Cholesterol 87 mg/dL (0-130) 04/16/18 03:28 HDL Cholesterol 41 mg/dL (40-) 04/16/18 03:28 Knowledge of Condition:: Yes Hospital Course Cardiac Cath Date:: 04/16/18 Medical/Surgical History Angina:: Yes Diabetes Type II:: Yes Dyslipidemia:: Yes PTCA:: Yes
--- NOTE | 2018-04-16 14:15 | CRPH1.INSTRU ---
General Education CAD and cardiac anatomy and function:: Needs reinforcement Explanation of diagnoses and procedures:: Needs reinforcement Sign/Symptoms of MS:: Needs reinforcement Antiplatelet therapy: Needs reinforcement Proper use of NTG-SL: Not instructed Emergency procedures and activation of EMS: Needs reinforcement Compliance of all prescribed medications: Needs reinforcement Smoking Patient Nicotine/Smoking Risk Factors Are:: Cigarettes Recommendations Include:: Smoking cessation strategies/Smoking packet, Second-hand smoke recommendation, Participation in a smoking cessation program, Previous smoker; encourage continued cessation Nicotine/Smoking Response Code:: Needs reinforcement Dyslipidemia Recommendations Include:: Lipid profile provided, Lipid profile not available, Reviewed NCEP/ATP guidelines, Therapeutic Lifestyle Change dietary guidelines Dyslipidemia Response Code:: Needs reinforcement Overweight/Obesity Patient Overweight/Obesity Risk Factors Are:: Obesity - > or = 30 Recommendations Include:: Weight loss of 5-10%, Reduced calorie diet, Exercise 5-7 times/week Overweight/Obesity:: Needs reinforcement Hypertension Patient Hypertension Risk Factors Are:: No documented hx of HTN Hypertension:: Needs reinforcement Heart Disease Heart Disease Response Code:: Needs reinforcement Diabetes Patient Diabetes Risk Factors Are:: Elevated blood sugars Recommendations Include:: Maintain fasting blood sugars 70-110 md/dL, Maintain HgbA1c of 6% or less, Monitor blood sugar as prescribed, Diabetic dietary guidelines, Decrease/maintain body weight Diabetes:: Needs reinforcement Sedentary Patient Sedentary Risk Factors Are:: Lack of regular exercise Sedentary Response Code:: Needs reinforcement Stress Stress Response Code:: Needs reinforcement
--- NOTE | 2018-04-16 14:18 | CRPH1.INST_ITS ---
General Education CAD and cardiac anatomy and function:: Needs reinforcement Explanation of diagnoses and procedures:: Needs reinforcement Sign/Symptoms of IL:: Needs reinforcement Antiplatelet therapy: Needs reinforcement Proper use of NTG-SL: Not instructed Emergency procedures and activation of EMS: Needs reinforcement Compliance of all prescribed medications: Needs reinforcement Smoking Patient Nicotine/Smoking Risk Factors Are:: Cigarettes Recommendations Include:: Smoking cessation strategies/Smoking packet, Second- hand smoke recommendation, Participation in a smoking cessation program, Previous smoker; encourage continued cessation Nicotine/Smoking Response Code:: Needs reinforcement Dyslipidemia Recommendations Include:: Lipid profile provided, Lipid profile not available, Reviewed NCEP/ATP guidelines, Therapeutic Lifestyle Change dietary guidelines Dyslipidemia Response Code:: Needs reinforcement Overweight/Obesity Patient Overweight/Obesity Risk Factors Are:: Obesity - > or = 30 Recommendations Include:: Weight loss of 5-10%, Reduced calorie diet, Exercise 5-7 times/week Overweight/Obesity:: Needs reinforcement Hypertension Patient Hypertension Risk Factors Are:: No documented hx of HTN Hypertension:: Needs reinforcement Heart Disease Heart Disease Response Code:: Needs reinforcement Diabetes Patient Diabetes Risk Factors Are:: Elevated blood sugars Recommendations Include:: Maintain fasting blood sugars 70-110 md/dL, Maintain HgbA1c of 6% or less, Monitor blood sugar as prescribed, Diabetic dietary guidelines, Decrease/maintain body weight Diabetes:: Needs reinforcement Sedentary Patient Sedentary Risk Factors Are:: Lack of regular exercise Sedentary Response Code:: Needs reinforcement Stress Stress Response Code:: Needs reinforcement
[2018-04-16] MEDS: buPROPion (XL) 150 MG TABLET.XL PO ×2 (15:23→22:07)
[2018-04-16] MEDS: Sertraline 50 MG Tablet PO (15:28)
[2018-04-16 17:01] LABS: Bedside Glucose 137 mg/dL (70-110)
--- NOTE | 2018-04-16 20:41 | CL.D_ITS ---
Patient Name: EDUARDO HAGER Study Date: 04/16/2018 Performing: Karsten Goins MD Ht: 69 inches 175 cm : 1975 Wt: 229.6 lbs 104 kg Age: 42 Gender: female BSA: 2.19 PROCEDURE(S) PERFORMED IX34-CQS/COR/LV [id number] W OR WO PTCA, SINGLE CORONARY ARTERY CLINICAL PROFILE AND INDICATIONS Indications: Suspected CAD Heart Failure: None Stress/Imaging Stress Test w/SPECT MPI: Yes Result: PositiveStress Test with SPECT MPI: Positive Angina Classification Anginal Classification w/in 2 Weeks: CCS IV CAD Presentations: Unstable angina. CONCLUSIONS Elevated Left Ventricular End Diastolic Pressure Normal LV size, wall motion,and systolic function LVEF: by LV gram 60 % [place] Multivessel CAD (Predominantly LAD: Proximal) RECOMMENDATIONS Risk factor modification Medical therapy Referred for immediate PCI DESCRIPTION OF PROCEDURE The patient arrived to the procedure lab. The risks and benefits of the procedure as well as a full d escription of our services here and current unavailability of surgical backup were fully explained to the patient and/or their significant other prior to the catheterization. The Timeout was completed, verifying the correct patient and procedure. The patient's procedural site was prepped and draped in the usual fashion. Local anesthetic was given subcutaneously to right radial region with Lidocaine 2% . Using a modified Seldinger technique, arterial access was obtained via the right radial artery, a 6 Fr sheath was inserted. Left Coronary Artery selective angiography was performed in multiple views u sing a 5 Fr. JL4 catheter. Right Coronary Artery selective angiography was then performed in multiple views using a 5 Fr. 3DRC (Anand) catheter. Left Ventriculography was performed in SANTIAGO projection using a 5 Fr. Pigtail catheter. LV to AO pullback pressures were then recorded.The arterial sheath was pulled and a TR Band was applied for hemostasis-18cc air CORONARY ANGIOGRAPHY DOMINANCE: Right Dominant LEFT HEART ASSESSMENT Left Ventricular Ejection Fraction: by LV Gram 60 % Normal LV wall motion Elevated Left Ventricular End Diastolic Pressure LVEDP: 25 mmHg LEFT MAIN: Angiographically normal LEFT ANTERIOR DECENDING ARTERY: PROX LAD: 85 % Stenosis CIRCUMFLEX ARTERY: Mild luminal irregularities RIGHT CORONARY ARTERY: Mild luminal irregularities VALVE FINDINGS: Normal Aortic Valve function Normal Mitral Valve function AORTIC ROOT: Angiographically normal COMPLICATIONS No Complications PROCEDURE MEDICATIONS Fentanyl 50 mcg IV Versed 1 mg IV Versed 1 mg IV Fentanyl 50 mcg IV Fentanyl 25 mcg IV Versed 2 mg IV Oxygen: 2 L/min via nasal cannula Angiomax Bolus 15.8 ml's 04/16/2018 13:17:26 Angiomax 5mg / ml @ 36.8 ml/hr IV started @ 04/16/2018 13:19:19 Heparin diluted in 23cc Heparinized saline. Patient given 10cc IA of this solution. 04/16/2018 12:27:4 9 Heparin diluted in 23cc Heparinized saline. Patient given 10cc IA of this solution. 04/16/2018 12:27:4 9 Nitro 200 mcg IC 04/16/2018 13:27:18 Verapamil 2.5mg, Ntg 100mcgs, 2000 units of Heparin diluted in 23cc Heparinized saline. Patient give n 10cc IA of this solution. 04/16/2018 12:27:49 Verapamil 2.5mg, Ntg 100mcgs, 2000 units of Heparin diluted in 23cc Heparinized saline. Patient give n 10cc IA of this solution. 04/16/2018 12:27:49 SUMMARY OF HEMODYNAMIC DATA Time AIR REST ECG 11:46:48 AO 110/72 (90) SA 12:44:26 LV 129/2, 30 12:58:16 LV 132/2, 25 12:58:24 LV 131/4, 30 12:59:12 LVp 126/11, 26 12:59:22 AOp 125/76 (98) 12:59:27 Signed By Karsten Goins MD On 04/16/2018 20:40:34 Karsten Goins MD
[2018-04-16] MEDS: Atorvastatin Calcium 80 MG Tablet PO (21:44)
[2018-04-16] MEDS: TICAGRELOR 90 MG TABLET PO (21:44)
[2018-04-16] MEDS: Metoprolol Tartrate 25 MG Tablet PO (21:44)
[2018-04-16 23:31] LABS: Bedside Glucose 185 mg/dL (70-110)
[2018-04-17] VITALS (14 sets, daily range): BP systolic 94–131; BP diastolic 49–93; PULSE 64–91; RESP 15–22; TEMP 36.8; O2SAT 95–98
[2018-04-17 04:36] LABS: Hematocrit 38.7 % (37-47); Hemoglobin 12.8 g/dl (12.0-15.0)
[2018-04-17 04:52] LABS: Anion Gap 10 (5-15); BUN 14 mg/dL (7-18); BUN/Creat Ratio 14.3 RATIO (10-20); Calcium,Total 8.6 mg/dL (8.5-10.1); Chloride 103 mmol/L (98-107); Creatinine, Serum 0.98 mg/dL (0.55-1.02); EST Glomerular Filtration Rate 66 mL/min (>60); Est Glom Filt Rate - Afr Amer 80 mL/min (>60); Estimated Creatinine Clearance 78.95 ml/min; Glucose 172 mg/dL (74-106); Potassium 4.2 mmol/L (3.5-5.1); Sodium Level 138 mmol/L (136-145)
--- NOTE | 2018-04-17 05:55 | EKG12_ITS ---
Test Reason : AM EKG Blood Pressure : / mmHG Vent. Rate : 069 BPM Atrial Rate : 069 BPM P-R Int : 156 ms QRS Dur : 094 ms QT Int : 430 ms P-R-T Axes : 033 058 091 degrees QTc Int : 460 ms Normal sinus rhythm T-wave abnormality: consider lateral myocardial ischemia Confirmed by NEMO CHASE, ADORE ([id number]), acquisition editor ZO WONG ([id number]) on 04/18/2018 2:50:50 PM Referred By: SHANNAN Confirmed By:ADORE CHESTER MD
[2018-04-17 06:05] LABS: Bedside Glucose 173 mg/dL (70-110)
[2018-04-17] MEDS: Glimepiride 2 MG Tablet PO (08:10)
[2018-04-17] MEDS: TICAGRELOR 90 MG TABLET PO (08:19)
[2018-04-17] MEDS: Sertraline 50 MG Tablet PO (08:19)
[2018-04-17] MEDS: Aspirin E.C. 81 MG Tablet PO (08:19)
[2018-04-17] MEDS: Metoprolol Tartrate 25 MG Tablet PO (08:19)
[2018-04-17] MEDS: buPROPion (XL) 150 MG TABLET.XL PO (08:20)
--- NOTE | 2018-04-17 09:14 | PCM.PN.CARD ---
Subjectve: No symptoms Objective: Vital Signs Temp Pulse Resp BP Pulse Ox 98.2 F 87 22 H 131/70 H 97 04/17/18 00:00 04/17/18 08:19 04/17/18 08:00 04/17/18 08:00 04/17/18 08:00 Oxygen Flow Rate (L/min) 3 Oxygen Delivery Method Room Air Weight: 104.326 kg Body Mass Index (BMI) 34.0 Intake and Output for Last 24 Hours 04/15/18 04/16/18 04/17/18 23:59 23:59 23:59 Intake Total 775 / 775 210 / 210 Balance 775 / 775 210 / 210 04/16/18 08:22: Hemoglobin A1c 8.2 H 04/17/18 04:20: Hgb 12.8, Hct 38.7 04/17/18 04:20: Sodium 138, Potassium 4.2, Chloride 103, Carbon Dioxide 25.0, Anion Gap 10, BUN 14, Creatinine 0.98, Est GFR (MDRD) Af Amer 80, Est GFR (MDRD) Non-Af 66, BUN/Creatinine Ratio 14.3, Glucose 172 H, Calcium 8.6 Rhythm: EKG: ECHO: Stress Test: Cardiac Cath: S/P JIMENEZ PCI of pLAD, good results.D1. PCI: CT Surgery: Holter monitor: EPS: PPM: CXR: Chest CT Scan: Medical Necessity - Tobacco Use Smoking Status: Former smoker Tobacco Use: Cigarettes Assessment/Plan Stable CV status, D1 post pLAD JIMENEZ PCI. Optimize meds. May DC home today okay with the attending. FU with cardiology clinic in 4-6 weeks.
--- NOTE | 2018-04-17 09:51 | PCM.PN.CARD ---
Subjectve: The patient is awake and alert. She states she feels better overall. She has no new acute concerns or complaints. Objective: Vital Signs Temp Pulse Resp BP Pulse Ox 98.2 F 86 18 110/75 96 04/17/18 00:00 04/17/18 09:00 04/17/18 09:00 04/17/18 09:00 04/17/18 09:00 Oxygen Flow Rate (L/min) 3 Oxygen Delivery Method Room Air Weight: 230 lb Body Mass Index (BMI) 34.0 Intake and Output for Last 24 Hours 04/15/18 04/16/18 04/17/18 23:59 23:59 23:59 Intake Total 775 / 775 210 / 210 Balance 775 / 775 210 / 210 General: Awake, Alert, Oriented x 3, Cooperative, No Acute Distress HEENT: Atraumatic, Normocephalic, PERRL, EOMI, Sclera Non Icteric Oral: Moist Mucosa Neck: Supple, Good ROM, No JVD Lungs: Clear to auscultation Cardiovascular: Regular Rhythm, Normal S1, Normal S2 Vascular: Normal Radial Pulses Abdomen: Bowel Sounds Present, Soft, Non Tender Extremities: No Cyanosis, No Clubbing, No edema Neurological: No Focal Motor or Sensory Deficit Psych/Mental Status: Appropriate 04/16/18 08:22: Hemoglobin A1c 8.2 H 04/17/18 04:20: Hgb 12.8, Hct 38.7 04/17/18 04:20: Sodium 138, Potassium 4.2, Chloride 103, Carbon Dioxide 25.0, Anion Gap 10, BUN 14, Creatinine 0.98, Est GFR (MDRD) Af Amer 80, Est GFR (MDRD) Non-Af 66, BUN/Creatinine Ratio 14.3, Glucose 172 H, Calcium 8.6 Rhythm: Sinus rhythm EKG: This rhythm; no acute ECG changes Medical Necessity - Tobacco Use Smoking Status: Former smoker Tobacco Use: Cigarettes Assessment/Plan 1. CAD status post LAD PCI The patient presents with symptoms concerning for angina pectoris-unstable. She underwent noninvasive evaluation and subsequently invasive evaluation. She was noted to have LAD proximal disease. She underwent LAD PCI. She states she feels better overall at this time. He will continue medical management. She will continue with outpatient cardiovascular follow-up and outpatient cardiac rehabilitation therapy. 2. Hyperlipidemia She will continue lipid-lowering therapy. 3. Diabetes mellitus She will continue evaluation care per internal medicine. Comment: The patient's case was discussed and reviewed with the patient and the [facility] staff. This note was generated using a voice recognition system and there may be incorrect words, spelling or punctuation that were not noted when reviewing the office note prior to saving.
--- NOTE | 2018-04-17 10:18 | PCM.DC ---
- Discharge Diagnoses Current Active Problems: Current Active and Chronic Problems (Last Updated 04/17/18 @ 09:22 by Emily Rob) Atherosclerotic heart disease of [place] coronary artery without angina pectoris (Chronic) S/P angioplasty with stent (Chronic ~04/16/18) PCI/JIMENEZ of the ostial LAD Chest pain (Acute) Angina pectoris (Acute) Abnormal cardiovascular stress test (Acute) HLD (hyperlipidemia) (Chronic) Diabetes mellitus (Chronic) You will use the following diet at home:: Calorie/Carbohydrate Controlled (specify 1200, 1400, etc), Cardiac Your food should be the consistency of: Regular Your liquids should be the consistency of: Regular/Thin Discharge Activity: - - gradually work up to walking 30 minutes daily at least 5-6 days a week. No hills until seen by cardiology. May resume sexual activity in: 10-14 days Call your doctor if your incision/area has: Continuous Slow Oozing, Sudden Increased Bleeding, Increased Pain/ Swelling, Increased Redness, Foul Smelling Discharge, Swelling at the incision site Call your doctor if you observe: Fever of 101 or Higher, Shortness of breath, Dizziness, Fainting spells, Swelling in the ankles, Chest pain Additional Instructions: 1. Goals are HGBA1C less than 7.0, LDL cholesterol <70, BP less than 135/80. 2. regular exercise should be part of your oife for the rest of your life. 3. You will need your liver panel and lipid panel rechecked in 6 weeks. 4. You will need to follow up with Dr. Goins in 4 weeks in the cardiology office. Allergies/Adverse Reactions: Allergies naproxen Adverse Reaction (Verified 04/15/18 20:16) Other Medications to take at Discharge Metformin HCl [Metformin HCl ER] 1,000 mg PO BID 02/26/17 buPROPion XL [Wellbutrin Xl] 150 mg PO BID 02/26/17 Glimepiride 2 mg PO DAILY 04/15/18 Sertraline HCl 50 mg PO DAILY 04/15/18 Aspirin E.C. [Ecotrin] 325 mg PO DAILY@0800 tablet 04/17/18 Atorvastatin Calcium [Lipitor] 80 mg PO QHS #30 tablet 04/17/18 Clopidogrel Bisulfate [Plavix] 75 mg PO DAILY #30 tablet 04/17/18 Metoprolol Tartrate [Lopressor (beta layla)] 25 mg PO BID #60 tablet 04/17/18 Nitroglycerin [Nitrostat] 0.4 mg SUBLINGUAL Q5M PRN #1 bottle 04/17/18 The following prescriptions were given: Atorvastatin Calcium [Lipitor] 80 mg PO QHS #30 tablet Clopidogrel Bisulfate [Plavix] 75 mg PO DAILY #30 tablet Nitroglycerin [Nitrostat] 0.4 mg SUBLINGUAL Q5M PRN #1 bottle PRN Reason: Chest Pain Metoprolol Tartrate [Lopressor (beta layla)] 25 mg PO BID #60 tablet Primary Care Physician: Kevin Conn MD [Primary Care Provider] - Please follow up with your Primary Care Physician in: 5-7 days Test Results: Test results from this visit will be discussed in further detail at your follow-up appointment, if applicable. Please Follow Up With: Karsten Goins MD When: 4 weeks Proposed Discharge Date: 04/17/18
--- NOTE | 2018-04-17 10:22 | DCINST_ITS ---
- Discharge Diagnoses Current Active Problems: Current Active and Chronic Problems (Last Updated 04/17/18 @ 09:22 by Emily Rob) Atherosclerotic heart disease of [place] coronary artery without angina pectoris (Chronic) S/P angioplasty with stent (Chronic ~04/16/18) PCI/JIMENEZ of the ostial LAD Chest pain (Acute) Angina pectoris (Acute) Abnormal cardiovascular stress test (Acute) HLD (hyperlipidemia) (Chronic) Diabetes mellitus (Chronic) You will use the following diet at home:: Calorie/Carbohydrate Controlled (specify 1200, 1400, etc), Cardiac Your food should be the consistency of: Regular Your liquids should be the consistency of: Regular/Thin Discharge Activity: - - gradually work up to walking 30 minutes daily at least 5-6 days a week. No hills until seen by cardiology. May resume sexual activity in: 10-14 days Call your doctor if your incision/area has: Continuous Slow Oozing, Sudden Increased Bleeding, Increased Pain/ Swelling, Increased Redness, Foul Smelling Discharge, Swelling at the incision site Call your doctor if you observe: Fever of 101 or Higher, Shortness of breath, Dizziness, Fainting spells, Swelling in the ankles, Chest pain Additional Instructions: 1. Goals are HGBA1C less than 7.0, LDL cholesterol <70, BP less than 135/80. 2. regular exercise should be part of your oife for the rest of your life. 3. You will need your liver panel and lipid panel rechecked in 6 weeks. 4. You will need to follow up with Dr. Goins in 4 weeks in the cardiology office. Allergies/Adverse Reactions: Allergies naproxen Adverse Reaction (Verified 04/15/18 20:16) Other Medications to take at Discharge Metformin HCl [Metformin HCl ER] 1,000 mg PO BID 02/26/17 buPROPion XL [Wellbutrin Xl] 150 mg PO BID 02/26/17 Glimepiride 2 mg PO DAILY 04/15/18 Sertraline HCl 50 mg PO DAILY 04/15/18 Aspirin E.C. [Ecotrin] 325 mg PO DAILY@0800 tablet 04/17/18 Atorvastatin Calcium [Lipitor] 80 mg PO QHS #30 tablet 04/17/18 Clopidogrel Bisulfate [Plavix] 75 mg PO DAILY #30 tablet 04/17/18 Metoprolol Tartrate [Lopressor (beta layla)] 25 mg PO BID #60 tablet 04/17/18 Nitroglycerin [Nitrostat] 0.4 mg SUBLINGUAL Q5M PRN #1 bottle 04/17/18 The following prescriptions were given: Atorvastatin Calcium [Lipitor] 80 mg PO QHS #30 tablet Clopidogrel Bisulfate [Plavix] 75 mg PO DAILY #30 tablet Nitroglycerin [Nitrostat] 0.4 mg SUBLINGUAL Q5M PRN #1 bottle PRN Reason: Chest Pain Metoprolol Tartrate [Lopressor (beta layla)] 25 mg PO BID #60 tablet Primary Care Physician: Kevin Conn MD [Primary Care Provider] - Please follow up with your Primary Care Physician in: 5-7 days Test Results: Test results from this visit will be discussed in further detail at your follow- up appointment, if applicable. Please Follow Up With: Karsten Goins MD When: 4 weeks Proposed Discharge Date: 04/17/18
--- NOTE | 2018-04-17 10:27 | PCM.DC.SUM ---
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 Electronically Signed: Jose David King MD at 22:01 EST , Service support , Laboratory Results - last 24 hr 04/16/18 04/16/18 04/16/18 03:28 08:22 11:31 Hgb Hct Sodium Potassium Chloride Carbon Dioxide Anion Gap BUN Creatinine Estim Creat Clear Calc Est GFR (MDRD) Af Amer Est GFR (MDRD) Non-Af BUN/Creatinine Ratio Glucose Hemoglobin A1c 8.2 H Calcium Serum , Qual NEGATIVE POC Glucose 134 H 04/16/18 04/16/18 04/17/18 16:55 23:23 04:20 Hgb 12.8 Hct 38.7 Sodium Potassium Chloride Carbon Dioxide Anion Gap BUN Creatinine Estim Creat Clear Calc Est GFR (MDRD) Af Amer Est GFR (MDRD) Non-Af BUN/Creatinine Ratio Glucose Hemoglobin A1c Calcium Serum , Qual POC Glucose 137 H 185 H 04/17/18 04/17/18 04:20 06:01 Hgb Hct Sodium 138 Potassium 4.2 Chloride 103 Carbon Dioxide 25.0 Anion Gap 10 BUN 14 Creatinine 0.98 Estim Creat Clear Calc 78.95 Est GFR (MDRD) Af Amer 80 Est GFR (MDRD) Non-Af 66 BUN/Creatinine Ratio 14.3 Glucose 172 H Hemoglobin A1c Calcium 8.6 Serum , Qual POC Glucose [address] Karsten Goins-[facility] Dr. Eze Escalante -interventional cardiology Operations: None Procedures: Cardiac catheterization - She had 85% stenosis of the left anterior descending artery and was referred for intervention. She underwent PTCA/JIMENEZ to the LAD. Summary of Care Provided: The patient is a 42-year-old female with a past medical history of hyperlipidemia, diabetes mellitus type 2, former smoking history and depression who presented to the emergency department at [facility] on 04/15/2018 complaining of substernal chest pain that radiated to both sides of her jaw and down the left arm and was associated with shortness of breath. She was admitted to a monitored bed on the progressive care unit and serial cardiac enzymes were obtained and were negative. A nuclear stress test was performed on 04/16/2018 and this demonstrated changes appearing compatible with an area of stress-induced myocardial ischemia and portions of the mid to distal anterolateral, anteroseptal, anterior apical and septal apical segments. The gated nuclear ejection fraction was 54%. She was seen in consultation by Dr. Karsten Goins who performed cardiac catheterization on 04/16/2018. Catheterization showed an 85% occlusion of the proximal LAD. She was referred for PCI. She underwent PTCA/JIMENEZ by and the postprocedure stenosis was 0. She was transferred to the cardiac care unit and monitored on telemetry overnight. She had normal sinus rhythm with no significant ectopy. Significant labs during her admission included a hemoglobin A1c of 8.2 and a LDL of 87. Was discharged home on aspirin and Plavix for at least one year and then can likely go down to aspirin alone. She will be taking a beta-layla and a high intensity statin. She was given a prescription for sublingual Nitrostat. She was encouraged to keep her blood pressure under 135/80, the hemoglobin A1c at 7 or less and the LDL at less than 70. She was encouraged to walk 30 minutes 5-6 times a week. Weight loss was also encouraged. She stopped smoking in July 2017. GENERAL: alert, oriented X 3, Cooperative, NAD ORAL: moist mucosa, no mucosal lesions NECK: No JVD, supple, trachea midline, carotids have brisk upstroke and good pulse volume, no carotid bruits LUNGS: CTA, symmetric chest expansion, good air exchange throughout HEART: RRR, Normal S1 and S2, no rub, no gallop, no murmur ABDOMEN: soft, NT, ND, BS present, no guarding with palpation EXTREMITIES: no edema, no cyanosis, no calf tenderness, peripheral pulses are normal. The R wrist cath site is dry and there is no hematoma, redness or DC. SKIN: No rashes, no breakdown NEUROLOGIC: no focal neurologic deficits PSYCH: appropriate, normal affect, pleasant This note was generated with [employer] dictation software. It may contain incorrect words, spelling, and punctuation that were not noted in checking the note before signing. - Physical Exam Vital Signs Temp Pulse Resp BP Pulse Ox 98.2 F 91 18 112/75 95 04/17/18 00:00 04/17/18 10:00 04/17/18 10:00 04/17/18 10:00 04/17/18 10:00 Oxygen Flow Rate (L/min) 3 Oxygen Delivery Method Room Air Weight: 230 lb Body Mass Index (BMI) 34.0 Intake and Output for Last 24 Hours 04/15/18 04/16/18 04/17/18 23:59 23:59 23:59 Intake Total 775 / 775 210 / 210 Balance 775 / 775 210 / 210 Laboratory Tests Past 24 Hrs 04/16/18 04/16/18 04/17/18 03:28 08:22 04:20 Hgb 12.8 Hct 38.7 Sodium Potassium Chloride Carbon Dioxide Anion Gap BUN Creatinine Estim Creat Clear Calc Est GFR (MDRD) Af Amer Est GFR (MDRD) Non-Af BUN/Creatinine Ratio Glucose Hemoglobin A1c 8.2 H Calcium Serum , Qual NEGATIVE 04/17/18 04:20 Hgb Hct Sodium 138 Potassium 4.2 Chloride 103 Carbon Dioxide 25.0 Anion Gap 10 BUN 14 Creatinine 0.98 Estim Creat Clear Calc 78.95 Est GFR (MDRD) Af Amer 80 Est GFR (MDRD) Non-Af 66 BUN/Creatinine Ratio 14.3 Glucose 172 H Hemoglobin A1c Calcium 8.6 Serum , Qual POC Glucose 04/17/18 04/16/18 04/16/18 06:01 23:23 16:55 POC Glucose 173 H 185 H 137 H 04/16/18 11:31 POC Glucose 134 H Discharge Activity: - - gradually work up to walking 30 minutes daily at least 5-6 days a week. No hills until seen by cardiology. May resume sexual activity in: 10-14 days Call your doctor if your incision/area has: Continuous Slow Oozing, Sudden Increased Bleeding, Increased Pain/ Swelling, Increased Redness, Foul Smelling Discharge, Swelling at the incision site Call your doctor if you observe: Fever of 101 or Higher, Shortness of breath, Dizziness, Fainting spells, Swelling in the ankles, Chest pain Home Medications: Medications to take at Discharge Metformin HCl [Metformin HCl ER] 1,000 mg PO BID 02/26/17 buPROPion XL [Wellbutrin Xl] 150 mg PO BID 02/26/17 Glimepiride 2 mg PO DAILY 04/15/18 Sertraline HCl 50 mg PO DAILY 04/15/18 Aspirin E.C. [Ecotrin] 325 mg PO DAILY@0800 tablet 04/17/18 Atorvastatin Calcium [Lipitor] 80 mg PO QHS #30 tablet 04/17/18 Clopidogrel Bisulfate [Plavix] 75 mg PO DAILY #30 tablet 04/17/18 Metoprolol Tartrate [Lopressor (beta layla)] 25 mg PO BID #60 tablet 04/17/18 Nitroglycerin [Nitrostat] 0.4 mg SUBLINGUAL Q5M PRN #1 bottle 04/17/18 Following Prescrptions Were Given to Patient: Atorvastatin Calcium [Lipitor] 80 mg PO QHS #30 tablet Clopidogrel Bisulfate [Plavix] 75 mg PO DAILY #30 tablet Nitroglycerin [Nitrostat] 0.4 mg SUBLINGUAL Q5M PRN #1 bottle PRN Reason: Chest Pain Metoprolol Tartrate [Lopressor (beta layla)] 25 mg PO BID #60 tablet Primary Care Physician: Kevin Conn MD [Primary Care Provider] - Please follow up with your Primary Care Physician in: 5-7 days Please Follow Up With: Karsten Goins MD When: 4 weeks Disposition: Home Minutes spent on discharge:: 35 Patient Condition:: Good Medical Necessity - Tobacco Use Smoking Status: Former smoker Tobacco Use: Cigarettes Meaningful Use Info Meaningful Use Diagnoses (Choose all that apply): None applicable Code Visit Inpatient E&M: 79652 Disch Hosp
--- NOTE | 2018-04-17 10:31 | DS.PCM_ITS ---
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 Electronically Signed: Jose David King MD at 22:01 EST , Service support , Laboratory Results - last 24 hr 04/16/18 04/16/18 04/16/18 03:28 08:22 11:31 Hgb Hct Sodium Potassium Chloride Carbon Dioxide Anion Gap BUN Creatinine Estim Creat Clear Calc Est GFR (MDRD) Af Amer Est GFR (MDRD) Non-Af BUN/Creatinine Ratio Glucose Hemoglobin A1c 8.2 H Calcium Serum , Qual NEGATIVE POC Glucose 134 H 04/16/18 04/16/18 04/17/18 16:55 23:23 04:20 Hgb 12.8 Hct 38.7 Sodium Potassium Chloride Carbon Dioxide Anion Gap BUN Creatinine Estim Creat Clear Calc Est GFR (MDRD) Af Amer Est GFR (MDRD) Non-Af BUN/Creatinine Ratio Glucose Hemoglobin A1c Calcium Serum , Qual POC Glucose 137 H 185 H 04/17/18 04/17/18 04:20 06:01 Hgb Hct Sodium 138 Potassium 4.2 Chloride 103 Carbon Dioxide 25.0 Anion Gap 10 BUN 14 Creatinine 0.98 Estim Creat Clear Calc 78.95 Est GFR (MDRD) Af Amer 80 Est GFR (MDRD) Non-Af 66 BUN/Creatinine Ratio 14.3 Glucose 172 H Hemoglobin A1c Calcium 8.6 Serum , Qual POC Glucose [address] Karsten Goins-[facility] Dr. Eze Escalante -interventional cardiology Operations: None Procedures: Cardiac catheterization - She had 85% stenosis of the left anterior descending artery and was referred for intervention. She underwent PTCA/JIMENEZ to the LAD. Summary of Care Provided: The patient is a 42-year-old female with a past medical history of hyperlipidemia, diabetes mellitus type 2, former smoking history and depression who presented to the emergency department at [facility] on 04/15/2018 complaining of substernal chest pain that radiated to both sides of her jaw and down the left arm and was associated with shortness of breath. She was admitted to a monitored bed on the progressive care unit and serial cardiac enzymes were obtained and were negative. A nuclear stress test was performed on 04/16/2018 and this demonstrated changes appearing compatible with an area of stress-induced myocardial ischemia and portions of the mid to distal anterolateral, anteroseptal, anterior apical and septal apical segments. The gated nuclear ejection fraction was 54%. She was seen in consultation by Dr. Karsten Goins who performed cardiac catheterization on 04/16/2018. Catheterization showed an 85% occlusion of the proximal LAD. She was referred for PCI. She underwent PTCA/JIMENEZ by and the postprocedure stenosis was 0. She was transferred to the cardiac care unit and monitored on telemetry overnight. She had normal sinus rhythm with no significant ectopy. Significant labs during her admission included a hemoglobin A1c of 8.2 and a LDL of 87. Was discharged home on aspirin and Plavix for at least one year and then can likely go down to aspirin alone. She will be taking a beta-layla and a high intensity statin. She was given a prescription for sublingual Nitrostat. She was encouraged to keep her blood pressure under 135/80, the hemoglobin A1c at 7 or less and the LDL at less than 70. She was encouraged to walk 30 minutes 5-6 times a week. Weight loss was also encouraged. She stopped smoking in July 2017. GENERAL: alert, oriented X 3, Cooperative, NAD ORAL: moist mucosa, no mucosal lesions NECK: No JVD, supple, trachea midline, carotids have brisk upstroke and good pulse volume, no carotid bruits LUNGS: CTA, symmetric chest expansion, good air exchange throughout HEART: RRR, Normal S1 and S2, no rub, no gallop, no murmur ABDOMEN: soft, NT, ND, BS present, no guarding with palpation EXTREMITIES: no edema, no cyanosis, no calf tenderness, peripheral pulses are normal. The R wrist cath site is dry and there is no hematoma, redness or DC. SKIN: No rashes, no breakdown NEUROLOGIC: no focal neurologic deficits PSYCH: appropriate, normal affect, pleasant This note was generated with [employer] dictation software. It may contain incorrect words, spelling, and punctuation that were not noted in checking the note before signing. - Physical Exam Vital Signs Temp Pulse Resp BP Pulse Ox 98.2 F 91 18 112/75 95 04/17/18 00:00 04/17/18 10:00 04/17/18 10:00 04/17/18 10:00 04/17/18 10:00 Oxygen Flow Rate (L/min) 3 Oxygen Delivery Method Room Air Weight: 230 lb Body Mass Index (BMI) 34.0 Intake and Output for Last 24 Hours 04/15/18 04/16/18 04/17/18 23:59 23:59 23:59 Intake Total 775 / 775 210 / 210 Balance 775 / 775 210 / 210 Laboratory Tests Past 24 Hrs 04/16/18 04/16/18 04/17/18 03:28 08:22 04:20 Hgb 12.8 Hct 38.7 Sodium Potassium Chloride Carbon Dioxide Anion Gap BUN Creatinine Estim Creat Clear Calc Est GFR (MDRD) Af Amer Est GFR (MDRD) Non-Af BUN/Creatinine Ratio Glucose Hemoglobin A1c 8.2 H Calcium Serum , Qual NEGATIVE 04/17/18 04:20 Hgb Hct Sodium 138 Potassium 4.2 Chloride 103 Carbon Dioxide 25.0 Anion Gap 10 BUN 14 Creatinine 0.98 Estim Creat Clear Calc 78.95 Est GFR (MDRD) Af Amer 80 Est GFR (MDRD) Non-Af 66 BUN/Creatinine Ratio 14.3 Glucose 172 H Hemoglobin A1c Calcium 8.6 Serum , Qual POC Glucose 04/17/18 04/16/18 04/16/18 06:01 23:23 16:55 POC Glucose 173 H 185 H 137 H 04/16/18 11:31 POC Glucose 134 H Discharge Activity: - - gradually work up to walking 30 minutes daily at least 5-6 days a week. No hills until seen by cardiology. May resume sexual activity in: 10-14 days Call your doctor if your incision/area has: Continuous Slow Oozing, Sudden Incre ased Bleeding, Increased Pain/ Swelling, Increased Redness, Foul Smelling Discharge, Swelling at the incision site Call your doctor if you observe: Fever of 101 or Higher, Shortness of breath, Dizziness, Fainting spells, Swelling in the ankles, Chest pain Home Medications: Medications to take at Discharge Metformin HCl [Metformin HCl ER] 1,000 mg PO BID 02/26/17 buPROPion XL [Wellbutrin Xl] 150 mg PO BID 02/26/17 Glimepiride 2 mg PO DAILY 04/15/18 Sertraline HCl 50 mg PO DAILY 04/15/18 Aspirin E.C. [Ecotrin] 325 mg PO DAILY@0800 tablet 04/17/18 Atorvastatin Calcium [Lipitor] 80 mg PO QHS #30 tablet 04/17/18 Clopidogrel Bisulfate [Plavix] 75 mg PO DAILY #30 tablet 04/17/18 Metoprolol Tartrate [Lopressor (beta layla)] 25 mg PO BID #60 tablet 04/17/18 Nitroglycerin [Nitrostat] 0.4 mg SUBLINGUAL Q5M PRN #1 bottle 04/17/18 Following Prescrptions Were Given to Patient: Atorvastatin Calcium [Lipitor] 80 mg PO QHS #30 tablet Clopidogrel Bisulfate [Plavix] 75 mg PO DAILY #30 tablet Nitroglycerin [Nitrostat] 0.4 mg SUBLINGUAL Q5M PRN #1 bottle PRN Reason: Chest Pain Metoprolol Tartrate [Lopressor (beta layla)] 25 mg PO BID #60 tablet Primary Care Physician: Kevin Conn MD [Primary Care Provider] - Please follow up with your Primary Care Physician in: 5-7 days Please Follow Up With: Karsten Goins MD When: 4 weeks Disposition: Home Minutes spent on discharge:: 35 Patient Condition:: Good Medical Necessity - Tobacco Use Smoking Status: Former smoker Tobacco Use: Cigarettes Meaningful Use Info Meaningful Use Diagnoses (Choose all that apply): None applicable Code Visit Inpatient E&M: 76448 Disch Hosp
== END 2018-04-17 11:32 | disposition home or self-care (01) | DRG 175 ==
LOC: ED 20:58 → PCU 23:39 → ICU 04-16 15:50
PROVIDERS: Internal Medicine Cardiovascular Disease; Admitting Provider Hospitalist; Emergency Provider Emergency Medicine; Family Provider Family Medicine; PCP Family Medicine; Visit Provider Internal Medicine
DX: I25.119 Atherosclerotic heart disease of native coronary artery with unspecified angina pectoris (principal); E78.5 Hyperlipidemia, unspecified; E11.9 Type 2 diabetes mellitus without complications; Z87.891 Personal history of nicotine dependence; Z79.84 Long term (current) use of oral hypoglycemic drugs; Z82.49 Family history of ischemic heart disease and other diseases of the circulatory system; F32.9 Major depressive disorder, single episode, unspecified; Z79.899 Other long term (current) drug therapy; R94.39 Abnormal result of other cardiovascular function study
CPT/HCPCS: 36415; 71045; 78452; 80048; 80061; 82962; 83036; 84484; 84703; 85014; 85018; 85025; 85027; 85610; 85730; 92928; 93005; 93017; 93458; 99152; 99153; 99218; 99285; A9500; Q9967; A4216; C1725; C1769; C1874; C1887; C1894; C9600; G0378; J0583

== ENCOUNTER → 2018-04-29 11:47 | Outpatient (CLI) | payer MEDICAID, SELFPAY ==
[2018-04-16 00:06] VITALS: BMI 34.0
[2018-04-16 14:14] VITALS: BMI 34.0
[2018-04-28 15:41] VITALS: BMI 34.0
--- NOTE | 2018-04-29 12:35 | CR.HP_ITS ---
CR - History & Physical - General Arrival date:: 04/29/18 Arrival time:: 12:00 Date of Referral:: 04/17/18 Date of CR Evaluation:: 04/29/18 Referring Physician: Dr. Karsten Goins Primary Diagnosis: NSTEMI, PCI w/stent - History of Present Cardiac Event Onset Date: Enter Onset Date of cardiac illnesses in Comment field below Current stable Angina Pectoris:: No Acute Myocardial Infarction within 12 months:: Yes - NSTEMI Coronary Artery Bypass Graft:: No Heart valve replacement or repair:: No PTCA or coronary stenting:: Yes - 04/16/2018 Heart or Heart-Lung Transplant:: No Heart Failure EF <35%:: No Interventions with present event:: Heart cath w/coronary intervention stent placement Were there any complications?: none - Medications Home Medications: Ambulatory Orders Medication Instructions Recorded Metformin HCl [Metformin HCl ER] 1,000 mg PO BID 02/26/17 buPROPion XL [Wellbutrin Xl] 150 mg PO BID 02/26/17 Glimepiride 2 mg PO DAILY 04/15/18 Sertraline HCl 50 mg PO DAILY 04/15/18 Aspirin E.C. [Ecotrin] 325 mg PO DAILY@0800 tab 04/17/18 Nitroglycerin [Nitrostat] 0.4 mg SUBLINGUAL Q5M PRN #1 bottle 04/17/18 atorvastatin 80 mg tablet 80 mg PO QHS #90 tab 04/28/18 clopidogrel 75 mg tablet 75 mg PO DAILY #90 tab 04/28/18 metoprolol tartrate 25 mg tablet 25 mg PO BID #180 tab 04/28/18 - Allergies Allergies/Adverse Reactions: Allergies naproxen Adverse Reaction (Verified 04/28/18 15:41) Other - Sleep Disorder Evaluation Hx of Sleep Apnea: No Do you snore loudly (louder than talking or can be heard through closed doors)?: No Do you often feel tired/ fatigued/ sleepy during daytime?: Yes - sometimes 6:45 am to 5:00 pm daily Has anyone observed you stop breathing during sleep?: No History of Hypertension (for STOP score): Yes STOP Results: Positive Advanced Directives - Advanced Directives Power of Industrial Tractor Driver: No Living Will: No Advance Directives Information Provided: Yes Advance Directives on File: No DNR Order?:: No - MOLST See MOLST form: No Past Medical History - Past Medical Illness Medical History: Past Medical History (Last Updated 04/28/18 @ 16:46 by QUINCY Corrales) Atherosclerotic heart disease of [place] coronary artery without angina pectoris (Chronic) I25.10 PCI/JIMENEZ of the ostial LAD HLD (hyperlipidemia) (Chronic) E78.5 Diabetes mellitus (Chronic) E11.9 - Past Surgical History Surgical History: Past Surgical History (Last Reviewed 04/28/18 @ 15:42 by Elva Schultz) S/P angioplasty with stent (Chronic) Onset Date: ~04/16/18 Z95.820 PCI/JIMENEZ of the ostial LAD Surgical History: - - All his teeth has been pulled out. - Family History Summary Family History: Family History (Last Updated 04/28/18 @ 15:43 by Elva Schultz) Mother CAD (coronary artery disease) stents, CABG Diabetes Social History - Smoking History Smoking Status: Former smoker Years Smokin Packs Smoked per Day: 1 Hx Smoking Cessation Date: July 2017 Hx Tobacco Use: No Hx Smoking Exposure: No - Alcohol Use Alcohol Usage: No - Substance Abuse Hx Substance Use: No - Occupation Occupation (List type of work in comments):: Employed Hours worked per day:: 12 Returned to work on:: 05/01/18 - released to work - Hobbies, Recreation, Social Activities Hobbies: Other - none Recreational Activities: I am able to engage in all my recreational activities Social Environment - Status Marital Status: - Current Living Arrangements Living Environment:: Spouse - Children How many children do you have?: 4 Do any of your children live nearby?: Yes - 2 adults two teenagers - Safety Do you feel safe in your surroundings?: Yes - Assistance Do you need any assistance at home?: none Review of Systems - Review of Systems Hints: Right click = Denies ([place]). Left click = Reports ([place]) Review of Present Symptoms: Reports: Fatigue - does experience some fatigue but is improving since been home, Appetite - Special Diet - follow diabetic and cardiac diet., Sleep - Normal. Denies: Shortness of Breath at Rest, Shortness of Breath with Exertion, PVD, Angina, Dizziness/Lightheadedness, Heart Arrhythmia/Irregularities, Appetite - Normal - hasn't been since had full teeth extraction done, Sexual Changes - Pain Is Patient Pain Free?: Yes Pain Location: none Risk Factor Assessment - Chief Complaint Chief Complaint: Aquiles presentst o cardiac rehab today following recent NSTEMI and PCI intervention wiht stent placement. - Vital Signs Temperature: 98.7 F Respiratory Rate: 14 Pulse Ox: 98 Blood Pressure: 112/66 Nailbeds:: pink - Pulse Pulse Rate: 72 Pulse Rhythm: Regular - Hypertension Blood Pressure Sitting - Left Arm: 112/66 - Blood Cholesterol/Lipids Total Cholesterol (mg/dL) Goal = less than 200 mg/dL: 185 HDL Cholesterol (mg/dL) Goal = less than 40 mg/dL: 41 LDL Cholesterol (mg/dL) Goal = less than 70 mg/dL: 87 Triglycerides (mg/dL) Goal = less than 150 mg/dL: 283 - Diabetes Diabetic History: Type II, Medication Dependent - metformin Nutrition Referral for Diabetes: Yes - Obesity Height: 5 ft 9 in Weight:: 217 lb Weight in Pounds: 217.0 lbs Weight Source: Estimated by Patient Body Mass Index (BMI): 32.0 Nutritional Referral for Obesity: Yes - Physical Inactivity Physical Inactivity: None - Risk Stratification Risk Guidelines: Lowest Risk: Risk Factor for Smoking, Risk Factor for Hypertension, Risk Factor for Depression - Zoloft and Wellbutrin for depression, Moderate Risk: Risk Factor for Dyslipidemia, Risk Factor for Diabetes - hBA1c 8.2, Highest Risk: Risk Factor for Obesity, Risk Factor for Sedentary Lifestyle - For Smoking Smoking Risk Guidelines: Smoking Low Risk: None or quit greater than 6 months ago. Smoking Moderate Risk: Smoker or quit 6 months or less ago. Smoking High Risk: Smoker - For Dyslipidemia Dyslipidemia Risk Guidelines: Low Risk: Moderate Risk: High Risk: 15-25% fat 25.1-29% fat >/= 30% fat. <7% sat fat 7-9% sat fat >9% sat fat. <150 mg chol 150-299 mg chol >/= 300 mg chol. LDL <100 LDL 100-129 LDL >/= 130. Chol/HDL ratio <5.0 Chol/HDL ratio 5.0-6.0 Chol/HDL ratio >6.0. Triglycerides <100 Triglycerides 100-149 Triglycerides >/= 150 - For Diabetes Mellitus Diabetes Risk Guidelines: Diabetes Low Risk: HgA1c <6.5% and/or FBG <120. Diabetes Moderate Risk: HgA1c 6.6-7.9% and/or FBG 120-180. Diabetes High Risk: HgA1c >/= 8% and/or FBG >180 - For Obesity/Overweight Obesity/Overweight Risk Guidelines: Obesity Low Risk: BMI <25.0. Obesity Moderate Risk: BMI 25-29.9. Obesity High Risk: BMI >/= 30.0 - For Hypertension Hypertension Risk Guidelines: Hypertension Low Risk: Systolic <120 and Diastolic <80. Hypertension Moderate Risk: Systolic 120-139 and Diastolic 80-89. Hypertension High Risk: Systolic >/= 140 and Diastolic >/= 90 - For Sedentary Lifestyle Sedentary Lifestyle Risk Guidelines: Sedentary Lifestyle Low Risk: >/= 1,500 kcal/week. Sedentary Lifestyle Moderate Risk: 700-1,499 kcal/week. Sedentary Lifestyle High Risk: < 700 kcal/week - For Depression Depression Risk Guidelines: Depression Low Risk: Not clinically depressed. Depression Moderate Risk: Mildly depressed. Depression High Risk: Clinically depressed - Family History Family History: Family History (Last Updated 04/28/18 @ 15:43 by Elva Schultz) Mother CAD (coronary artery disease) Diabetes Motivation - Motivation to Participate On a scale of 1 to 10, how prepared are you to commit to attending program?: 10 What do you see as barriers to successfully being able to complete the program?: job and schedule What do you see as the benefits of succesfully completing the program? In other words, what do you hope to get out of participating in the program?: learning more about cardiac disease, never had any real knowledge Are there issues you are dealing with that will interfere with completing the program?: job scheduled hours Do you have a spouse or signficant other, family or friends who will help support you to complete the program?: yes.
[2018-04-29 12:44] VITALS: BP 112/66; PULSE 72; RESP 14; TEMP 37.1; O2SAT 98; BMI 32.0
== END ==
PROVIDERS: Family Provider Family Medicine; PCP Family Medicine; Referring Provider Internal Medicine Cardiovascular Disease; Visit Provider Internal Medicine Cardiovascular Disease
DX: I21.4 Non-ST elevation (NSTEMI) myocardial infarction (principal); Z95.1 Presence of aortocoronary bypass graft

== ENCOUNTER → 2018-06-05 07:15 | Outpatient (CLI) | payer MEDICAID, SELFPAY ==
[2018-04-16 14:14] VITALS: BMI 34.0
[2018-04-29 12:44] VITALS: BMI 32.0
[2018-06-05 07:50] LABS: AST(SGOT) 25 U/L (15-37); Alanine Aminotransfer ALT/SGPT 34 U/L (13-56); Albumin, Serum 3.4 g/dL (3.2-5.0); Alkaline Phosphatase 116 U/L (45-117); Bilirubin, Direct 0.08 mg/dL (0.00-0.30); Cholesterol 143 mg/dL (200); High Density Lipoprotein 38 mg/dL; Protein, Total 7.4 g/dL (6.4-8.2); Triglycerides 171 mg/dL; Very Low Density Lipoprotein 34 mg/dL (5-40)
== END ==
PROVIDERS: Family Provider Family Medicine; PCP Family Medicine; Referring Provider Physician Assistant Medical; Visit Provider Physician Assistant Medical
DX: I25.10 Atherosclerotic heart disease of native coronary artery without angina pectoris (principal); E78.5 Hyperlipidemia, unspecified; Z95.820 Peripheral vascular angioplasty status with implants and grafts
CPT/HCPCS: 36415; 80061; 80076

== ENCOUNTER 2018-08-04 17:15 | Outpatient (RCR) | payer MEDICAID, SELFPAY ==
[2018-04-16 14:14] VITALS: BMI 34.0
[2018-04-29 12:44] VITALS: BMI 32.0
== END 2018-08-12 23:59 ==
LOC: DC 17:15
PROVIDERS: Family Provider Family Medicine; PCP Family Medicine; Visit Provider Internal Medicine Cardiovascular Disease
DX: E11.9 Type 2 diabetes mellitus without complications (principal); E78.5 Hyperlipidemia, unspecified; I25.10 Atherosclerotic heart disease of native coronary artery without angina pectoris; Z71.3 Dietary counseling and surveillance
CPT/HCPCS: 97802; 97803; G0108

== ENCOUNTER 2019-01-19 16:49 | Outpatient (RCR) | payer MEDICAID, SELFPAY ==
[2018-04-16 14:14] VITALS: BMI 34.0
[2018-04-29 12:44] VITALS: BMI 32.0
[2018-09-05 10:36] VITALS: BMI 33.7
== END 2019-02-12 23:59 ==
LOC: DC 16:49
PROVIDERS: Family Provider Family Medicine; PCP Family Medicine; Visit Provider Internal Medicine Cardiovascular Disease
DX: E11.9 Type 2 diabetes mellitus without complications (principal); E78.5 Hyperlipidemia, unspecified; I25.10 Atherosclerotic heart disease of native coronary artery without angina pectoris; Z71.3 Dietary counseling and surveillance
CPT/HCPCS: 97803

== ENCOUNTER 2019-02-02 09:25 | Emergency (ER) | payer MEDICAID, SELFPAY ==
[2018-04-16 14:14] VITALS: BMI 34.0
[2018-09-05 10:36] VITALS: BMI 33.7
[2019-02-02 09:26] VITALS: BP 140/75; PULSE 75; RESP 18; TEMP 36.5; O2SAT 100; BMI 33.4
--- NOTE | 2019-02-02 09:34 | EKG12_ITS ---
Test Reason : NEURO S/SX Blood Pressure : / mmHG Vent. Rate : 071 BPM Atrial Rate : 071 BPM P-R Int : 140 ms QRS Dur : 092 ms QT Int : 408 ms P-R-T Axes : 040 014 039 degrees QTc Int : 443 ms Normal sinus rhythm Normal ECG Confirmed by FORTUNATO CHASE, RUBEN ([id number]), acquisition editor ZO WONG ([id number]) on 02/06/2019 11:09:43 AM Referred By: PENNY/KELLEY Confirmed By:RUBEN BUCIO MD
--- NOTE | 2019-02-02 10:01 | CT_ITS ---
STUDY: CT BRAIN WITHOUT CONTRAST REASON FOR EXAM: Female, 43 years old. 2 day history of right facial numbness and tingling. RADIATION DOSAGE (If Supplied By Facility): CTDIvol = ( 44.99 ) mGy, DLP = ( 745.49 ) mGycm TECHNIQUE: Transaxial CT imaging of the brain was performed without administration of intravenous contrast material. Individualized dose optimization techniques were used for this CT. COMPARISON: No relevant priors. FINDINGS: Normal soft tissue structures. Normal calvarium. Normal size ventricles and extra-axial spaces for the patient's age. Normal white matter tracts of the cerebral hemispheres. Normal basal ganglia and thalami. Normal brainstem. Normal cerebellum. There is no intracranial hemorrhage. There are no findings of an acute ischemic infarction. Normal visualized paranasal sinuses. CT/Brain/Head without Contrast IMPRESSION: Normal unenhanced CT scan of the brain. Electronically Signed: Micheal Triana, at 10:39 EDT , Service support ,
--- NOTE | 2019-02-02 10:03 | ED.DCSUM_ITS ---
History of Present Illness Chief Complaint: Numb/Ting Detail of Chief Complaint: Tingling right side of face Informant: Patient Onset: Days - Onset January 31Saturday Context: Sudden Onset Timing: Continuous Quality: Billing and asymmetry Location: Right side of face hairline to jaw Current Severity: Mild Maximum Severity: Mild Worsened by: Nothing Relieved by: Nothing Associated Symptoms: No other symptoms Narrative: Patient is a 43-year-old woman who presents with numbness and tingling forehead, face and jaw on the right side. She also complains of difficulty closing her eye and asymmetric smile. She does have history of hypertension, diabetes, hypercholesterolemia and quit smoking 1.5 years ago. She denies any symptoms in her extremities. She denies problems with balance. She denies change in voice. She denies difficulty swallowing. She has not checked her blood sugar recently. She denies blurred vision, change in vision or double vision. Prior similar symptoms: No Recent Illness/Hospitalization: No - Past Medical History (1) History of hypertension Status: Acute (2) Atherosclerotic heart disease of [place] coronary artery without angina pectoris Status: Chronic Comment: PCI/JIMENEZ of the ostial LAD (3) Depression Status: Chronic (4) Diabetes mellitus Status: Chronic (5) HLD (hyperlipidemia) Status: Chronic (6) S/P angioplasty with stent Status: Chronic Comment: PCI/JIMENEZ of the ostial LAD Past Medical History - Allergies and Home Meds Allergies/Adverse Reactions: Allergies naproxen Adverse Reaction (Verified 02/02/19 09:29) Other Primary Care Physician: Kevin Conn MD [Primary Care Provider] - Prior records reviewed: Yes Surgical History: - - All his teeth has been pulled out. Lives: Alone Smoking Status: Former smoker Alcohol: None Drugs: None Review of Systems General: Denies: Chills, Fever, Sweats Eyes: Denies: Visual changes - bilaterally, Blurred Vision - bilaterally, Diplo connie ENT: Denies: Bilateral ear pain, Rhinorrhea, Sore throat Cardiovascular: Denies: Chest pain, Palpitations, Heart racing Respiratory: Denies: Dyspnea, Cough, Dyspnea on exertion Gastrointestinal: Denies: Abdominal pain, Nausea, Vomiting, Diarrhea, Melena, Hematochezia Genitourinary: Denies: Dysuria, Hematuria, Frequency Musculoskeletal: Denies: Myalgias, Arthralgias, Neck pain, Back pain, Swelling, Extremity Pain Skin: Denies: Rash, Wounds Neurological: Reports: Weakness, Parasthesia, - - Tingling and weakness right side of face Psych: Reports: Depression Hematologic: Denies: Easy bruising, Easy bleeding Allergy: Denies: Uticaria, Swelling of the mouth, Swelling of the tongue Physical Exam Vital Signs/Narrative: Vital Signs Temp Pulse Resp BP Pulse Ox 02/02/19 09:26 97.7 F L 75 18 140/75 H 100 Inital Vital Signs reviewed: Yes General: Well nourished, Well developed, No Acute Distress Head: Normocephalic, Atraumatic Eyes: Perrl, EOMI ENT: Moist mucous membranes, No rhinorrhea Neck: Supple, Nontender Cardiovascular: Regular rate, Regular rhythm, No murmurs Respiratory: No distress, CTA bilaterally, Chest nontender Abdomen: Soft, Nontender, Nondistended, Normal bowel sounds Back: Nontender, Normal Inspection Extremities: Nontender, No edema Skin: Normal color, No rash Neurological: Alert, Oriented x3, Normal Strength, Normal DTR, Normal Gait, - - She has difficulty closing right eyelid, there is asymmetry of smile and altered sensation involving the forehead, cheek and jaw consistent with a peripheral 7th nerve. She also reported altered sensation tongue/taste on the right side. She does have difficulty raising her eyebrow as high on the right side as left.. Negative for: Normal Sensation Psychological: Normal affect, Normal Mood Diagnostic/Tx/Re-eval Impressions Brain CT 02/02/19 10:01 IMPRESSION: Normal unenhanced CT scan of the brain. Electronically Signed: Micheal Triana, at 10:39 EDT , Service support , 02/02/19 10:01 Brain/Head without Contrast [CT] Stat CT was reviewed by me and interpreted by radiologist is negative for any acute findings. Therefore, will discharge with appropriate home-going instructions for Hilliard's palsy. 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 However since she has history of coronary disease, hypertension, hypercholesterolemia, diabetes and history of smoking will obtain CT to evaluate for evidence of recent stroke. If negative will discharge with appropriate home-going instruction for Hilliard's palsy. ED Disposition - Plan for ED Patient: Disposition: Home or Assisted Living Diagnosis: Hilliard's palsy Instructions: Hilliard's Palsy Referrals: Kevin Conn MD [Primary Care Provider] - 10-14 Days if not better
[2019-02-02 11:18] VITALS: BP 103/67; PULSE 62; RESP 15; O2SAT 99
== END 2019-02-02 11:19 | disposition home or self-care (01) ==
PROVIDERS: Emergency Provider Emergency Medicine; Family Provider Family Medicine; PCP Family Medicine
DX: G51.0 Bell's palsy (principal); E78.00 Pure hypercholesterolemia, unspecified; E11.9 Type 2 diabetes mellitus without complications; I10 Essential (primary) hypertension; I25.10 Atherosclerotic heart disease of native coronary artery without angina pectoris; F32.9 Major depressive disorder, single episode, unspecified; Z95.5 Presence of coronary angioplasty implant and graft; Z87.891 Personal history of nicotine dependence; Z79.82 Long term (current) use of aspirin; Z79.84 Long term (current) use of oral hypoglycemic drugs; Z79.899 Other long term (current) drug therapy
CPT/HCPCS: 70450; 93005; 97803; 99282; A4216

== ENCOUNTER → 2020-11-22 06:53 | Outpatient (CLI) | payer MEDICAID, SELFPAY ==
[2018-04-16 14:14] VITALS: BMI 34.0
[2020-10-31 11:03] VITALS: BMI 33.5
--- NOTE | 2020-11-22 13:20 | STRESSREP ---
Stress Test Report Date: 11-23-2019 Procedure: Exercise tolerance test/imaging study Indications: CAD; PCI; angina pectoris; COVID-19 Consent: Per the patient Procedure: The patient exercised on a Serge protocol for 7-minute completing Stage II and 1 minute of Stage III achieving a peak heart rate of 155 bpm (88% predicted maximal heart rate) with a peak blood pressure 170/68 mmHg and a peak MET capacity of 9 METs. The baseline ECG demonstrated normal sinus rhythm. The peak exercise ECG demonstrated no obvious ECG changes. There was an isolated PVC during exercise. The functional capacity was considered average. There was mild chest pain/left upper extremity discomfort at peak exercise with spontaneous resolution in recovery. The examination was discontinued secondary to chest pain. Impression: 1. Technically adequate (percent predicted maximal heart rate greater than 85%) exercise tolerance test 2. Peak exercise ECG with no obvious ECG change 3. There was an isolated PVC during exercise 4. Nuclear images pending Myocardial perfusion imaging study: Technique: The patient was injected with 14.0 mCi of technetium 99m Cardiolite and subsequently rest SPECT Cardiolite nuclear imaging was obtained in the horizontal long, vertical long, and short axis views. The patient exercised on a Serge protocol for 7-minute completing Stage II and 1 minute of Stage III achieving a peak heart rate of 155 bpm (88% predicted maximal heart rate) with a peak blood pressure 170/68 mmHg and a peak MET capacity of 9 METs. The patient was injected with 44.2 mCi of technetium 99m Cardiolite and subsequently stress SPECT Cardiolite nuclear imaging was obtained in the horizontal long, vertical long, and short axis views. A gated Cardiolite study at peak stress was obtained. Interpretation: Rest and stress SPECT Cardiolite nuclear imaging status post realignment, normalization, and attenuation correction, demonstrates the appearance of body motion during image acquisition and at rest the appearance of a small area of diminished myocardial perfusion/tracer uptake in the mid to distal anterolateral segment which status post arrest appears to improve/normalize. There is end systolic thickening and brightening. The gated Cardiolite study demonstrates myocardial thickening and inward wall motion. The reported LVEF is 59%. Impression: 1. Rest and stress SPECT Cardiolite nuclear imaging demonstrate the appearance of body motion during image acquisition and the appearance of a small area of diminished myocardial perfusion/tracer uptake in the mid to distal anterolateral segment at rest which appears to improve/normalize following stress appearing compatible with the effects of body motion during image acquisition and shifting soft tissue attenuation/artifact with no myocardial perfusion changes considered diagnostic for associated stress-induced myocardial ischemia. 2. The gated Cardiolite study reports an LVEF of 59%. This note was generated with [employer] software. It may contain incorrect words, spelling, and punctuation that were not noted in checking the note before signing.
== END ==
PROVIDERS: PCP Family Medicine; Referring Provider Internal Medicine Cardiovascular Disease; Visit Provider Internal Medicine Cardiovascular Disease
DX: I25.119 Atherosclerotic heart disease of native coronary artery with unspecified angina pectoris (principal); E78.00 Pure hypercholesterolemia, unspecified; Z95.5 Presence of coronary angioplasty implant and graft
CPT/HCPCS: 78452; 93017; A9500

== ENCOUNTER → 2021-11-04 | Outpatient (CLI) | payer MEDICAID, SELFPAY ==
[2018-04-16 14:14] VITALS: BMI 34.0
[2021-11-04 09:16] LABS: AST(SGOT) 14 U/L (15-37); Alanine Aminotransfer ALT/SGPT 26 U/L (13-56); Albumin, Serum 3.5 g/dL (3.2-5.0); Alkaline Phosphatase 111 U/L (45-117); Bilirubin, Direct 0.07 mg/dL (0.00-0.30); Cholesterol 129 mg/dL (200); Globulin 3.8 g/dL (2.2-4.2); High Density Lipoprotein 41 mg/dL; Protein, Total 7.3 g/dL (6.4-8.2); Triglycerides 108 mg/dL; Very Low Density Lipoprotein 22 mg/dL (5-40)
== END | disposition home or self-care (01) ==
LOC: LAB 07:34
PROVIDERS: Referring Provider Nurse Practitioner Gerontology; Visit Provider Nurse Practitioner Gerontology
DX: E78.00 Pure hypercholesterolemia, unspecified (principal)
CPT/HCPCS: 36415; 80061; 80076

== ENCOUNTER → 2022-06-16 | Outpatient (CLI) | payer MEDICAID, SELFPAY ==
[2018-04-16 14:14] VITALS: BMI 34.0
[2022-06-16 08:53] LABS: AST(SGOT) 23 U/L (15-37); Alanine Aminotransfer ALT/SGPT 48 U/L (13-56); Albumin, Serum 3.6 g/dL (3.2-5.0); Alkaline Phosphatase 142 U/L (45-117); Anion Gap 9 (5-15); BUN 22 mg/dL (7-18); BUN/Creat Ratio 22.5 RATIO (10-20); Calcium,Total 9.1 mg/dL (8.5-10.1); Chloride 101 mmol/L (98-107); Cholesterol 130 mg/dL (200); Creatinine, Serum 0.98 mg/dL (0.55-1.02); EST Glomerular Filtration Rate 65 mL/min (>60); Est Glom Filt Rate - Afr Amer 79 mL/min (>60); Globulin 3.6 g/dL (2.2-4.2); Glucose 297 mg/dL (74-106); High Density Lipoprotein 37 mg/dL; Potassium 4.1 mmol/L (3.5-5.1); Protein, Total 7.2 g/dL (6.4-8.2); Sodium Level 136 mmol/L (136-145); Thyroid Stim Hormone (TSH) 2.69 uIU/mL (0.358-3.74); Triglycerides 109 mg/dL; Very Low Density Lipoprotein 22 mg/dL (5-40)
[2022-06-16 09:57] LABS: Hemoglobin A1c 9.6 % (3.8-5.6)
[2022-06-17 14:07] LABS: LDL, Direct 120295 77 mg/dL (0-99)
== END | disposition home or self-care (01) ==
LOC: LAB 07:32
PROVIDERS: Nurse Practitioner Gerontology
DX: Z00.00 Encounter for general adult medical examination without abnormal findings (principal); E11.29 Type 2 diabetes mellitus with other diabetic kidney complication; E11.59 Type 2 diabetes mellitus with other circulatory complications; E11.22 Type 2 diabetes mellitus with diabetic chronic kidney disease; N18.31 Chronic kidney disease, stage 3a; I25.10 Atherosclerotic heart disease of native coronary artery without angina pectoris; Z95.5 Presence of coronary angioplasty implant and graft; E78.2 Mixed hyperlipidemia; R80.9 Proteinuria, unspecified
CPT/HCPCS: 36415; 80048; 80061; 80076; 83036; 83721; 84443